=== PATIENT | female | born 1950 | race Caucasian/White ===

== ENCOUNTER 2019-12-14 06:09 | Inpatient (IN) | payer MEDICARE, OTHER ==
[~2019-12-14 06:09] MED LIST: Acetaminophen 325 MG Tab PO SCH; Lactated Ringers 1,000 ML IV SCH; Lidocaine 1%/Sod Bicarbonate in NS 8.4% 1 ML Syringe IDERM PRN; Pregabalin 25 MG Cap PO SCH; Sodium Chloride 0.9% 10 ML Syringe FLUSH PRN; oxyCODONE ER 10 MG TAB.ER PO SCH
[2019-12-14] MEDS ORDERED: ceFAZolin 1 GM Vial ONE ×2 (06:15→06:58)
[2019-12-14] MEDS ORDERED: Vancomycin 1 GM SDV ONE (06:15)
[2019-12-14] MEDS ORDERED: Iodine/Sodium Iodide 2% Tincture 30 ML Bottle ONE (06:15)
[2019-12-14] MEDS ORDERED: Bupivacaine 0.25% 10 ML SDV ONE (06:15)
[2019-12-14] MEDS ORDERED: Morphine 8 MG, EPINEPHrine 0.3 MG, Cefuroxime 750 MG, Ketorolac 30 MG, Sodium Chloride ... PRN ×5 (06:38)
[2019-12-14] MEDS ORDERED: Bisacodyl 5 MG Tab PO PRN (06:40)
[2019-12-14] MEDS ORDERED: Magnesium Hydroxide 400 MG/5 ML Susp 30 ML Cup PO PRN (06:40)
[2019-12-14] MEDS ORDERED: Sennosides 8.6 MG Tab PO PRN (06:40)
[2019-12-14] MEDS ORDERED: Naloxone 0.4 MG/ML SDV IVPUSH PRN (06:40)
--- NOTE | 2019-12-14 06:43 | PCM.PREANE ---
Preanesthetic Assessment - Anesthesia/Transfusion/Family Hx Anesthesia History: Prior Anesthesia Without Reaction Transfusion History: Prior Transfusion Without Reaction Type of Transfusion Reactions: Reports: Unknown - Review of Systems General: No Symptoms Pulmonary: No Symptoms Cardiovascular: No Symptoms Gastrointestinal: No Symptoms Neurological: No Symptoms Other: Reports: None - Physical Assessment NPO Status Date: 12/13/19 NPO Status Time: 19:00 ASA Class: 2 Mental Status: Alert & Oriented x3 Airway Class: Mallampati = 2 Dentition: Reports: Normal Dentition, [place](s), Bridge Thyro-Mental Finger Breadths: 3 Mouth Opening Finger Breadths: 4 ROM/Head Extension: Full Lungs: Clear to Auscultation, Normal Respiratory Effort - Lab Values: Laboratory Last Values MRSA (PCR) Negative 12/01/19 16:56 - Allergies Allergies/Adverse Reactions: Allergies Allergy/AdvReac Type Severity Reaction Status Date / Time No Known Allergies Allergy Verified 12/13/19 11:24 - Blood Blood Available: Yes Product(s) Available: PRBC - Acknowledgements Anesthesia Type Planned: General Anesthesia, Spinal Pt an Appropriate Candidate for the Planned Anesthesia: Yes Alternatives and Risks of Anesthesia Discussed w Pt/Guardian: Yes Pt/Guardian Understands and Agrees with Anesthesia Plan: Yes PreAnesthesia Questionnaire HEENT History: Reports: Impaired Vision Cardiovascular History: Reports: None Respiratory History: Reports: Sleep Apnea, Other (See Below) Other Respiratory History: cough, undiagnosed sleep apnea symptoms Gastrointestinal History: Reports: Colon Polyp, Other (See Below) Other Gastrointestinal History: R inguinal hernia, tubular adenoma Genitourinary History: Reports: Renal Calculus SALON ASSISTANT History: Reports: Other OB/BYN History: , uterine prolapse, cystocele, atrophic vagintis Musculoskeletal History: Reports: Osteoarthritis, Osteoporosis Other Musculoskeletal History: left leg fracture, L elbow fracture Neurological History: Reports: Migraines, Vertigo Other Neuro History: dizziness Psychiatric History: Reports: Anxiety, Depression Endocrine/Metabolic History: Reports: Other (See Below) Other Endocrine/Metabolic History: thyroid nodule Hematologic History: Reports: None Immunologic History: Reports: None Oncologic (Cancer) History: Reports: None Dermatologic History: Reports: Other (See Below) Other Dermatologic History: lump in neck, skin lesions, seborrheic keratosis, skin lesion excsion - Infectious Disease History Infectious Disease History: Reports: None - Past Surgical History Head Surgeries/Procedures: Reports: None HEENT Surgical History: Reports: None Cardiovascular Surgical History: Reports: None Respiratory Surgical History: Reports: None GI Surgical History: Reports: Colonoscopy Female Surgical History: Reports: Breast Biopsy, Section, Tubal Ligation Neurological Surgical History: Reports: None Musculoskeletal Surgical History: Reports: Hip Replacement Other Musculoskeletal Surgeries/Procedures:: left leg fracture with repair, left hip replacement, left elbow ORIF Oncologic Surgical History: Reports: None - SUBSTANCE USE Smoking Status *Q: Former Smoker Days Per Week of Alcohol Use: 3 Number of Drinks Per Day: 3 Total Drinks Per Week: 9 Recreational Drug Use History: No - HOME MEDS Home Medications: Home Meds Ascorbic Acid [Vitamin C] 1,000 mg PO DAILY 09/28/16 [History] Calcium Carb/Vitamin D3/Vit K1 [Calcium + D Soft Chewable Tab] 2 tab PO DAILY [History] Multivitamin [Multivitamins] 1 tab PO DAILY 09/28/16 [History] Potassium Gluconate 500 mg PO DAILY 09/28/16 [History] Vitamin B Complex 1 tab PO DAILY 09/28/16 [History] Vitamin E 400 unit PO DAILY 09/28/16 [History] Cholecalciferol (Vitamin D3) [Vitamin D3] 5,000 unit PO DAILY 12/13/19 [History] Lactobacillus Combination No.4 [Probiotic] 1 cap PO DAILY 12/13/19 [History] Turmeric 400 mg PO DAILY 12/13/19 [History] Ubidecarenone [Coq-10] 100 mg PO DAILY 12/13/19 [History] Vitamin A 10,000 units PO DAILY 12/13/19 [History] - CURRENT (IN HOUSE) MEDS Current Meds: Current Medications Acetaminophen (Tylenol) 975 mg PO ONETIME LORI Stop: 12/14/19 12:00 Last Admin: 12/14/19 06:23 Dose: 975 mg Lactated Ringer's (Ringers, Lactated) 1,000 mls @ 125 mls/hr IV ASDIRECTED LORI Lidocaine/Sodium Bicarbonate (Buffered Lidocaine 1% In Ns 8.4%) 0.25 ml IDERM ONETIME PRN PRN Reason: Prior to IV Start Oxycodone HCl (Oxycontin) 10 mg PO ONETIME LORI Stop: 12/14/19 12:00 Last Admin: 12/14/19 06:23 Dose: 10 mg Pregabalin (Lyrica) 50 mg PO ONETIME LORI Stop: 12/14/19 12:00 Last Admin: 12/14/19 06:23 Dose: 50 mg Sodium Chloride (Saline Flush) 10 ml FLUSH ASDIRECTED PRN PRN Reason: Keep Vein Open Discontinued Medications Bupivacaine HCl (Sensorcaine-Mpf 0.25%) Confirm Administered Dose 30 ml .ROUTE .STK-MED ONE Stop: 12/14/19 06:16 Cefazolin Sodium (Ancef) Confirm Administered Dose 2 gm .ROUTE .STK-MED ONE Stop: 12/14/19 06:16 Iodine (Iodine 2% Mild Tincture) Confirm Administered Dose 30 ml .ROUTE .STK- MED ONE Stop: 12/14/19 06:16 Tranexamic Acid (Cyklokapron) Confirm Administered Dose 1,000 mg .ROUTE .STK- MED ONE Stop: 12/14/19 06:16 Vancomycin HCl (Vancomycin) Confirm Administered Dose 1 gm .ROUTE .STK-MED ONE Stop: 12/14/19 06:16
[2019-12-14] MEDS ORDERED: ceFAZolin 2 GM in Premix Bag 1 BAG IV SCH (06:45)
[2019-12-14] MEDS ORDERED: Propofol 200 MG/20 ML SDV ONE (06:50)
[2019-12-14] MEDS ORDERED: Lidocaine 1% 4 ML ONE (06:50)
[2019-12-14] MEDS ORDERED: Lactated Ringers 1,000 ML ONE ×2 (06:58→08:42)
[2019-12-14] MEDS ORDERED: fentaNYL 100 MCG/2 ML SDV ONE (06:58)
[2019-12-14] MEDS ORDERED: Midazolam 1 MG/ML 2 ML SDV ONE (06:58)
[2019-12-14] MEDS ORDERED: Famotidine 20 MG Tab PO SCH (07:00)
[2019-12-14] MEDS ORDERED: Ondansetron 4 MG/2 ML SDV ONE (07:35)
[2019-12-14] MEDS ORDERED: ePHEDrine/Normal Saline 25 MG/5 ML Syringe ONE (07:41)
[2019-12-14] MEDS ORDERED: Phenylephrine/Normal Saline 100 MCG/ML 10 ML Syringe ONE (07:46)
[2019-12-14] MEDS ORDERED: Ondansetron 4 MG/2 ML SDV IVPUSH PRN (08:04)
[2019-12-14] MEDS ORDERED: ePHEDrine 50 MG/ML SDV IVPUSH PRN (08:04)
[2019-12-14] MEDS ORDERED: fentaNYL 100 MCG/2 ML SDV IVPUSH PRN (08:04)
[2019-12-14] MEDS ORDERED: diphenhydrAMINE 50 MG/ML SDV IVPUSH PRN (08:04)
[2019-12-14] MEDS ORDERED: HYDROmorphone 0.5 MG/0.5 ML Syringe IVPUSH PRN (08:04)
--- NOTE | 2019-12-14 09:16 | PCM.POSTAN ---
POST ANESTHESIA ASSESSMENT - MENTAL STATUS Mental Status: Alert, Oriented - VITAL SIGNS Vital Signs: Last Vital Signs Temp 36.3 C 12/14/19 06:15 Pulse 68 12/14/19 06:15 Resp 16 12/14/19 06:15 BP 124/64 12/14/19 06:15 Pulse Ox 96 12/14/19 06:15 - RESPIRATORY Respiratory Status: Respiratory Rate WNL, Airway Patent - CARDIOVASCULAR CV Status: Pulse Rate WNL, Blood Pressure Stable - GASTROINTESTINAL GI Status: No Symptoms - PAIN Pain Score: 0 - POST OP HYDRATION Hydration Status: Adequate & Stable
[2019-12-14] MEDS: oxyCODONE 5 MG Tab PO PRN ×3 (09:41→21:28)
--- NOTE | 2019-12-14 09:46 | PCM.CONS ---
H&P History of Present Illness - General Date of Service: 12/14/19 Admit Problem/Dx: Admission Diagnosis/Problem Admission Diagnosis/Problem Hip pain Source of Information: Patient, Old Records, Provider, RN, RN Notes Reviewed History Limitations: Reports: No Limitations - History of Present Illness Initial Comments - Free Text/Narative: Dilcia Rico is a 69 yo female patient of Dr. Spain who is post-operative day 0 of left hip acetabular revision with femoral head revision. Hospital medicine was consulted for post-operative medical care of the following listed medical conditions. At this time she is resting comfortably in bed. Pain is controlled. She denies any chest pain, shortness of breath, palpitations, nausea, or vomiting. Nursing notes the patient has a high HR and irregular rhythm. 12-lead EKG shows A-fib with RVR, rate of 170. She carries a history of: Impaired vision , cough, undiagnosed sleep apnea, right inguinal hernia, tubular adenoma, renal calculus, , uterine prolapse, cystocele, osteoarthritis, osteoporosis, migraines, vertigo, anxiety, depression, thyroid nodule, seborrheic keratosis, dizziness, lymphadenopathy, elevated LFTs, hypercalcemia, abnormal chest x-ray with hyperinflation and questionable subtle evolving infiltrate. She is a former smoker. She is a full code. Her primary care provider is Dr. Harris. Left Hip Pain Score (Numeric/FACES): 0 - Related Data Allergies/Adverse Reactions: Allergies Allergy/AdvReac Type Severity Reaction Status Date / Time No Known Allergies Allergy Verified 12/13/19 11:24 Home Medications: Home Meds Ascorbic Acid [Vitamin C] 1,000 mg PO DAILY 09/28/16 [History] Calcium Carb/Vitamin D3/Vit K1 [Calcium + D Soft Chewable Tab] 2 tab PO DAILY [History] Multivitamin [Multivitamins] 1 tab PO DAILY 09/28/16 [History] Potassium Gluconate 500 mg PO DAILY 09/28/16 [History] Vitamin B Complex 1 tab PO DAILY 09/28/16 [History] Vitamin E 400 unit PO DAILY 09/28/16 [History] Cholecalciferol (Vitamin D3) [Vitamin D3] 5,000 unit PO DAILY 12/13/19 [History] Lactobacillus Combination No.4 [Probiotic] 1 cap PO DAILY 12/13/19 [History] Turmeric 400 mg PO DAILY 12/13/19 [History] Ubidecarenone [Coq-10] 100 mg PO DAILY 12/13/19 [History] Vitamin A 10,000 units PO DAILY 12/13/19 [History] Past Medical History HEENT History: Reports: Impaired Vision Cardiovascular History: Reports: None Respiratory History: Reports: Sleep Apnea, Other (See Below) Other Respiratory History: cough, undiagnosed sleep apnea symptoms Gastrointestinal History: Reports: Colon Polyp, Other (See Below) Other Gastrointestinal History: R inguinal hernia, tubular adenoma Genitourinary History: Reports: Renal Calculus SAND DRIER History: Reports: Other OB/BYN History: , uterine prolapse, cystocele, atrophic vagintis Musculoskeletal History: Reports: Osteoarthritis, Osteoporosis Other Musculoskeletal History: left leg fracture, L elbow fracture Neurological History: Reports: Migraines, Vertigo Other Neuro History: dizziness Psychiatric History: Reports: Anxiety, Depression Endocrine/Metabolic History: Reports: Other (See Below) Other Endocrine/Metabolic History: thyroid nodule Hematologic History: Reports: None Immunologic History: Reports: None Oncologic (Cancer) History: Reports: None Dermatologic History: Reports: Other (See Below) Other Dermatologic History: lump in neck, skin lesions, seborrheic keratosis, skin lesion excsion - Infectious Disease History Infectious Disease History: Reports: None - Past Surgical History Head Surgeries/Procedures: Reports: None HEENT Surgical History: Reports: None Cardiovascular Surgical History: Reports: None Respiratory Surgical History: Reports: None GI Surgical History: Reports: Colonoscopy Female Surgical History: Reports: Breast Biopsy, Section, Tubal Ligation Neurological Surgical History: Reports: None Musculoskeletal Surgical History: Reports: Hip Replacement Other Musculoskeletal Surgeries/Procedures:: left leg fracture with repair, left hip replacement, left elbow ORIF Oncologic Surgical History: Reports: None Social & Family History - Tobacco Use Smoking Status *Q: Former Smoker Used Tobacco, but Quit: Yes Month/Year Tobacco Last Used: 2015 - Caffeine Use Caffeine Use: Reports: Coffee - Alcohol Use Days Per Week of Alcohol Use: 3 Number of Drinks Per Day: 3 Total Drinks Per Week: 9 - Recreational Drug Use Recreational Drug Use: No H&P Review of Systems - Review of Systems: Review Of Systems: See Below General: Reports: No Symptoms. Denies: Fever, Chills HEENT: Reports: No Symptoms. Denies: Headaches, Sore Throat Pulmonary: Reports: No Symptoms. Denies: Shortness of Breath, Wheezing, Cough, Sputum Cardiovascular: Reports: No Symptoms. Denies: Chest Pain, Palpitations, Dyspnea on Exertion, Lightheadedness (was earlier but not currently ) Gastrointestinal: Reports: No Symptoms. Denies: Abdominal Pain, Constipation, Diarrhea, Nausea, Vomiting Genitourinary: Reports: No Symptoms. Denies: Pain Musculoskeletal: Reports: Leg Pain Skin: Reports: No Symptoms. Denies: Cyanosis Psychiatric: Reports: No Symptoms. Denies: Confusion Neurological: Reports: Difficulty Walking, Gait Disturbance. Denies: Pre- Existing Deficit, Weakness Hematologic/Lymphatic: Reports: No Symptoms Immunologic: Reports: No Symptoms Exam - Exam Exam: See Below - Vital Signs Vital Signs: Last Vital Signs Temp 97.0 F 12/14/19 09:07 Pulse 68 12/14/19 06:15 Resp 12 12/14/19 09:45 BP 96/58 L 12/14/19 09:45 Pulse Ox 95 12/14/19 09:45 Weight: 129 lb 12.8 oz - Exam Quality Assessment: Supplemental Oxygen, DVT Prophylaxis General: Alert, Oriented, Cooperative. No: Mild Distress HEENT: Conjunctiva Clear, EACs Clear, Hearing Intact, Mucosa Moist & [place], Nares Patent, Posterior Pharynx Clear, PERRLA Neck: Supple, Trachea Midline Lungs: Clear to Auscultation, Normal Respiratory Effort Cardiovascular: Irregular Rhythm (A-fib with RVR), Tachycardia (170) GI/Abdominal Exam: Normal Bowel Sounds, Soft, Non-Tender, No Distention (Female) Exam: Deferred Rectal (Female) Exam: Deferred Back Exam: Normal Inspection, Full Range of Motion Extremities: No Pedal Edema, Normal Capillary Refill, Leg Pain, Limited Range of Motion, Other (Bandage in place on left leg. Bandage is dry and intact. Cooling pack in place. ) Peripheral Pulses: 2+: Radial (L), Radial (R), Dorsalis Pedis (L), Dorsalis Pedis (R) Skin: Warm, Dry, Intact Neurological: Cranial Nerves Intact (Grossly ) Neuro Extensive - Mental Status: Alert, Oriented x3, Normal Mood/Affect - Patient Data Lab Results Last 24 hrs: Laboratory Results - last 24 hr 12/14/19 Range/Units 06:40 Blood Type B POSITIVE Gel Antibody Screen Negative Sepsis Event Note - Evaluation Sepsis Screening Result: No Definite Risk - Focused Exam Vital Signs: Vital Signs Temp Pulse Resp BP Pulse Ox Pulse Ox 12/14/19 09:45 12 96/58 L 95 12/14/19 09:38 100 12/14/19 09:35 100 12/14/19 09:30 10 L 101/53 L 100 12/14/19 09:20 10 L 96/53 L 100 12/14/19 09:07 97.0 F 11 L 91/50 L 98 98 12/14/19 06:15 97.4 F 68 16 124/64 96 Date Exam was Performed: 12/14/19 Time Exam was Performed: 12:59 Consult PN Assessment/Plan POD#: 0 Procedures: Procedures ASSAY OF CHROMIUM (06/10/19) BLOOD TYPING SEROLOGIC ABO (09/30/16) BLOOD TYPING SEROLOGIC RH(D) (09/30/16) BONE IMAGING 3 PHASE (05/06/17) CMBN ANT PST COLPRHY (10/01/16) COMP SCREEN MAMMOGRAM ADD-ON (07/20/14) COMPLETE CBC W/AUTO DIFF WBC (09/30/16) COMPREHEN METABOLIC PANEL (09/30/16) EXC H-F-NK-SP B9+BEATRIZ 1.1-2 (10/01/16) HEAVY METAL QUANT EACH ARMANDO (03/20/17) HYDRATE IV INFUSION ADD-ON (10/01/16) INSERT TEMP BLADDER CATH (10/01/16) LAP ING HERNIA REPAIR INIT (10/01/16) RBC ANTIBODY SCREEN (09/30/16) REPAIR BLADDER DEFECT (10/01/16) ROUTINE VENIPUNCTURE (03/20/17) SMEAR WET [place] SALINE/INK (10/23/16) THER/PROPH/DIAG INJ IV PUSH (10/01/16) TISSUE EXAM BY PATHOLOGIST (10/01/16) TISSUE EXAM BY PATHOLOGIST (10/01/16) TRICHOMONAS ASSAY W/OPTIC (10/23/16) TX/PRO/DX INJ SAME DRUG CROSS CUT SAWYER (10/01/16) URINALYSIS AUTO W/O SCOPE (09/30/16) VAG HYST INCLUDING T/O (10/01/16) (1) Status post hip surgery SNOMED Code(s): 243088607, 994831748 Code(s): Z98.890 - OTHER SPECIFIED POSTPROCEDURAL STATES Priority: High Current Visit: Yes (2) Osteoarthritis SNOMED Code(s): 030343349 Code(s): M19.90 - UNSPECIFIED OSTEOARTHRITIS, UNSPECIFIED SITE Priority: High Current Visit: Yes Qualifiers: Osteoarthritis location: hip Osteoarthritis type: primary Laterality: right Qualified Code(s): M16.11 - Unilateral primary osteoarthritis, right hip (3) Impaired vision SNOMED Code(s): 546507226 Code(s): H54.7 - UNSPECIFIED VISUAL LOSS Priority: Low Current Visit: No (4) Cough SNOMED Code(s): 91347814 Code(s): R05 - COUGH Priority: Low Current Visit: No (5) Suspected sleep apnea SNOMED Code(s): 85925333 Code(s): R29.818 - OTHER SYMPTOMS AND SIGNS INVOLVING THE NERVOUS SYSTEM Priority: Medium Current Visit: No (6) Uterine prolapse SNOMED Code(s): 52410446 Code(s): N81.4 - UTEROVAGINAL PROLAPSE, UNSPECIFIED Priority: Low Current Visit: No (7) Cystocele SNOMED Code(s): 530468378 Code(s): TNU1946 - Priority: Low Current Visit: No (8) Osteoporosis SNOMED Code(s): 74449095 Code(s): M81.0 - AGE-RELATED OSTEOPOROSIS W/O CURRENT PATHOLOGICAL FRACTURE Priority: Medium Current Visit: Yes Qualifiers: Osteoporosis type: unspecified Presence of current pathological fracture: unspecified Qualified Code(s): M81.0 - Age-related osteoporosis without current pathological fracture (9) Migraines SNOMED Code(s): 11031462 Code(s): G43.909 - MIGRAINE, UNSP, NOT INTRACTABLE, WITHOUT STATUS MIGRAINOSUS Priority: Low Current Visit: No Qualifiers: Migraine type: unspecified Status migrainosus presence: without status migrainosus Intractability: not intractable Qualified Code(s): G43.909 - Migraine, unspecified, not intractable, without status migrainosus (10) Vertigo SNOMED Code(s): 365724251 Code(s): R42 - DIZZINESS AND GIDDINESS Priority: Low Current Visit: No (11) Anxiety SNOMED Code(s): 16750728 Code(s): F41.9 - ANXIETY DISORDER, UNSPECIFIED Priority: Low Current Visit: No (12) Depression SNOMED Code(s): 26169008 Code(s): F32.9 - MAJOR DEPRESSIVE DISORDER, SINGLE EPISODE, UNSPECIFIED Priority: Low Current Visit: No Qualifiers: Depression Type: other depression Qualified Code(s): F32.89 - Other specified depressive episodes (13) Dizziness SNOMED Code(s): 992280357, 027084125 Code(s): R42 - DIZZINESS AND GIDDINESS Priority: Low Current Visit: No (14) Thyroid nodule SNOMED Code(s): 422029011 Code(s): E04.1 - NONTOXIC SINGLE THYROID NODULE Priority: Low Current Visit: No (15) Seborrheic keratoses SNOMED Code(s): 436681519 Code(s): L82.1 - OTHER SEBORRHEIC KERATOSIS Priority: Low Current Visit: No (16) History of tobacco use SNOMED Code(s): 051303592 Code(s): Z87.891 - PERSONAL HISTORY OF NICOTINE DEPENDENCE Priority: Medium Current Visit: No (17) Abnormal chest x-ray SNOMED Code(s): 057982906, 346345200 Code(s): R93.89 - ABNORMAL FINDINGS ON DX IMAGING OF OTH BODY STRUCTURES Priority: Medium Current Visit: No (18) Elevated LFTs SNOMED Code(s): 506684902, 028971509 Code(s): R94.5 - ABNORMAL RESULTS OF LIVER FUNCTION STUDIES Priority: Medium Current Visit: No (19) Hypercalcemia SNOMED Code(s): 32138668 Code(s): E83.52 - HYPERCALCEMIA Priority: Medium Current Visit: No (20) Lymphadenopathy SNOMED Code(s): 37540277 Code(s): R59.1 - GENERALIZED ENLARGED LYMPH NODES Priority: Medium Current Visit: No (21) Right inguinal hernia SNOMED Code(s): 856440050 Code(s): K40.90 - UNIL INGUINAL HERNIA, W/O OBST OR GANGR, NOT SPCF RECUR Priority: Medium Current Visit: No (22) New onset atrial fibrillation SNOMED Code(s): 97145129 Code(s): I48.91 - UNSPECIFIED ATRIAL FIBRILLATION Priority: High Current Visit: Yes (23) Atrial fibrillation with rapid ventricular response SNOMED Code(s): 247323809974300 Code(s): I48.91 - UNSPECIFIED ATRIAL FIBRILLATION Priority: High Current Visit: Yes Problem List Initiated/Reviewed/Updated: Yes Plan: I/P: Acute: 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 - post-operative day 0 -DVT prophylaxis and pain management per primary care team -PT/OT -IS/RT -Monitor oxygen saturation -Titrate oxygen as needed -Home medications reviewed -Vital signs stable -Monitor labs -Pre-operative Hgb was 13.1 -Pre-operative GFR was 69 -Pre-operative AST was 38 -Pre-operative calcium was 10.9 -Pre-operative EKG showed a sinus rhythm with LAD Osteoarthritis of left hip -Pain management per primary care team A-fib with RVR -New onset -Noted post-surgically -12-lead shows A-fib RVR with rate of 170 -Denies symptoms -Cardizem IVP as ordered. -Cardizem drip -Telemetry -Upgraded to ICU status -[id number]-GHEf score of 1 (0.6% stroke risk per year.) -Echo tomorrow AM once rate is controlled. -Check labs Chronic: Impaired vision cough suspected undiagnosed sleep apnea right inguinal hernia tubular adenoma renal calculus uterine prolapse cystocele osteoarthritis osteoporosis migraines vertigo anxiety depression thyroid nodule seborrheic keratosis dizziness lymphadenopathy elevated LFTs hypercalcemia abnormal chest x-ray with hyperinflation and questionable subtle evolving infiltrate Plan: Upgrade to ICU status CM for discharge planning GI prophylaxis Home medications as indicated Other orders as listed above Routine AM labs She is a full code. Her PCP is Dr. Harris Thank you for allowing us to participate in the care of this patient!! Requesting Provider: Dr. Spain Date Consult Requested: 12/14/19 Patient History Reviewed: Yes Admission H&P Reviewed: Yes Notified Requestor: Yes
--- NOTE | 2019-12-14 09:52 | CR ---
Pelvis and left hip: AP view of the pelvis was obtained as well as crosstable lateral view of the left hip. Comparison: Previous pelvis and left hip study of 03/26/12. Left hip prosthesis is seen. Components are aligned. Joint space within the right hip is preserved. No acute fracture or other bony abnormality is seen. Osteopenia is present. Impression: 1. Left hip prosthesis. 2. Osteopenia. No acute bony abnormality is identified. Diagnostic code #2 This report was dictated in [place] Standard Time
[2019-12-14] MEDS: Ketorolac 15 MG/ML SDV IVPUSH PRN ×2 (10:39→16:52)
[2019-12-14] MEDS ORDERED: Diltiazem 125 MG in Sodium Chloride 0.9% 100 ML IV SCH ×2 (12:00→13:15)
[2019-12-14] MEDS: Diltiazem 50 MG/10 ML SDV IVPUSH STA (12:17)
[2019-12-14] MEDS ORDERED: Diltiazem 50 MG/10 ML SDV IVPUSH STA (12:21)
[2019-12-14] MEDS ORDERED: Lactated Ringers 1,000 ML IV ONE (13:05)
[2019-12-14] MEDS ORDERED: Diltiazem 50 MG/10 ML SDV IVPUSH ONE (13:08)
[2019-12-14] MEDS: Lactated Ringers 500 ML IV ONE ×2 (13:29→16:12)
[2019-12-14] MEDS: Morphine 2 MG/ML Syringe IVPUSH PRN ×3 (13:37→18:09)
[2019-12-14] MEDS: ceFAZolin 2 GM in Premix Bag 1 BAG IV SCH ×2 (14:08→22:04)
[2019-12-14 15:30] VITALS: PULSE 69
--- NOTE | 2019-12-14 16:51 | CR ---
Chest: Portable view of the chest was obtained. Comparison: No prior chest imaging is available. Heart size and mediastinum are normal. Right jugular line is seen. Tip lies within the superior vena cava close to the right atrial junction. No pneumothorax is seen. Heart size and mediastinum are normal. Lungs are clear. Bony structures are grossly intact. Impression: 1. Right-sided jugular line with tip lying at the right atrial and superior vena cava junction. 2. No pneumothorax. Diagnostic code #3 This report was dictated in [place] Standard Time
[2019-12-14] MEDS: Lactated Ringers 1,000 ML IV SCH (16:58)
[2019-12-14] MEDS ORDERED: Magnesium Sulfate/Water 2 GM in Premix Bag 1 BAG IV SCH (17:30)
[2019-12-14] MEDS ORDERED: Magnesium Sulfate/Water 4 GM in Premix Bag 1 BAG IV ONE (18:30)
[2019-12-14] MEDS: Famotidine 20 MG Tab PO SCH (19:59)
[2019-12-14] MEDS: Enoxaparin 60 MG/0.6 ML Syringe SUBCUT SCH (20:00)
[2019-12-14] MEDS: Docusate Sodium 100 MG Cap PO SCH (20:00)
[2019-12-14] MEDS ORDERED: Aspirin 325 MG Tab.EC PO SCH (21:00)
[2019-12-14] MEDS: Ondansetron 4 MG/2 ML SDV IVPUSH PRN (21:59)
--- NOTE | 2019-12-14 22:27 | PCM.PRNOTE ---
- Free Text/Narrative Note: Central Line Placement Date: 12/14/2019 Indication: Intravenous access Attending: Yuliet Ma MD A time-out was completed verifying correct patient, procedure, site, positioning , and special equipment if applicable. The patient was placed in a dependent position appropriate for central line placement based on the vein to be cannulated. The patients right neck was prepped and draped in sterile fashion. 1% Lidocaine was used to anesthetize the surrounding skin area. A triple lumen 7-[place] Cordis catheter was introduced into the the internal jugular/ using the Seldinger technique and under ultrasound guidance. The catheter was threaded smoothly over the guide wire and appropriate blood return was obtained. Each lumen of the catheter was evacuated of air and flushed with sterile saline. The catheter was then sutured in place to the skin and a sterile dressing applied. Perfusion to the extremity distal to the point of catheter insertion was checked and found to be adequate. Estimated Blood Loss: 3mL The patient tolerated the procedure well and there were no complications.
[2019-12-15] MEDS: Ketorolac 15 MG/ML SDV IVPUSH PRN (02:18)
[2019-12-15] MEDS: Lactated Ringers 1,000 ML IV SCH ×3 (03:03→22:52)
[2019-12-15] MEDS: ceFAZolin 2 GM in Premix Bag 1 BAG IV SCH (06:04)
--- NOTE | 2019-12-15 07:27 | PCM.PN ---
- General Info Date of Service: 12/15/19 Admission Dx/Problem (Free Text): Admission Diagnosis/Problem Admission Diagnosis/Problem Hip pain Functional Status: Reports: Pain Controlled, Tolerating Diet, Urinating, Incentive Spirometry. Denies: Ambulating, New Symptoms - Review of Systems General: Reports: No Symptoms, Weakness, Fatigue. Denies: Fever, Malaise, Chills HEENT: Reports: No Symptoms. Denies: Headaches, Sore Throat Pulmonary: Reports: No Symptoms. Denies: Shortness of Breath, Cough, Sputum, Wheezing Cardiovascular: Reports: No Symptoms. Denies: Chest Pain, Edema Gastrointestinal: Reports: No Symptoms. Denies: Abdominal Pain, Constipation, Diarrhea, Nausea, Vomiting Genitourinary: Reports: No Symptoms. Denies: Pain Musculoskeletal: Reports: No Symptoms Skin: Reports: No Symptoms. Denies: Cyanosis Neurological: Reports: No Symptoms. Denies: Confusion - Patient Data Vitals - Most Recent: Last Vital Signs Temp 97.9 F 12/15/19 04:00 Pulse 69 12/14/19 15:00 Resp 18 12/15/19 04:00 BP 96/58 L 12/15/19 04:00 Pulse Ox 99 12/15/19 04:00 Weight - Most Recent: 141 lb 9.6 oz I&O - Last 24 Hours: Intake & Output 12/14/19 12/15/19 12/15/19 22:59 06:59 14:59 Intake Total 2190 1353 Output Total 1100 1000 Balance 1090 353 Lab Results Last 24 Hours: Laboratory Results - last 24 hr 12/14/19 12/14/19 12/15/19 Range/Units 06:40 16:32 04:27 WBC 5.05 (3.98-10.04) K/mm3 RBC 3.11 L (3.98-5.22) M/mm3 Hgb 9.7 L D (11.2-15.7) gm/dl Hct 30.4 L (34.1-44.9) % MCV 97.7 H (79.4-94.8) fl MCH 31.2 (25.6-32.2) pg MCHC 31.9 L (32.2-35.5) g/dl RDW Std Deviation 45.2 (36.4-46.3) fL Plt Count 305 D (182-369) K/mm3 MPV 8.1 L (9.4-12.3) fl Sodium 135 L (136-145) mEq/L Potassium 4.1 (3.5-5.1) mEq/L Chloride 103 (98-107) mEq/L Carbon Dioxide 28 (21-32) mEq/L Anion Gap 8.1 (5-15) BUN 13 (7-18) mg/dL Creatinine 0.7 (0.55-1.02) mg/dL Est Cr Clr Drug Dosing 60.84 mL/min Estimated GFR (MDRD) > 60 (>60) mL/min BUN/Creatinine Ratio 18.6 H (14-18) Glucose 114 (80-115) mg/dL Calcium 8.2 L (8.5-10.1) mg/dL Phosphorus 3.4 (2.6-4.7) mg/dL Magnesium 1.4 L (1.8-2.4) mg/dl Total Bilirubin 0.3 (0.2-1.0) mg/dL AST 24 (15-37) U/L ALT 26 (14-59) U/L Alkaline Phosphatase 72 (46-116) U/L Total Protein 5.2 L (6.4-8.2) g/dl Albumin 2.7 L (3.4-5.0) g/dl Globulin 2.5 gm/dL Albumin/Globulin Ratio 1.1 (1-2) Blood Type B POSITIVE Gel Antibody Screen Negative 12/15/19 Range/Units 04:27 WBC (3.98-10.04) K/mm3 RBC (3.98-5.22) M/mm3 Hgb (11.2-15.7) gm/dl Hct (34.1-44.9) % MCV (79.4-94.8) fl MCH (25.6-32.2) pg MCHC (32.2-35.5) g/dl RDW Std Deviation (36.4-46.3) fL Plt Count (182-369) K/mm3 MPV (9.4-12.3) fl Sodium 132 L (136-145) mEq/L Potassium 4.2 (3.5-5.1) mEq/L Chloride 99 (98-107) mEq/L Carbon Dioxide 28 (21-32) mEq/L Anion Gap 9.2 (5-15) BUN 9 (7-18) mg/dL Creatinine 0.7 (0.55-1.02) mg/dL Est Cr Clr Drug Dosing 60.84 mL/min Estimated GFR (MDRD) > 60 (>60) mL/min BUN/Creatinine Ratio 12.9 L (14-18) Glucose 133 H (80-115) mg/dL Calcium 8.4 L (8.5-10.1) mg/dL Phosphorus (2.6-4.7) mg/dL Magnesium (1.8-2.4) mg/dl Total Bilirubin 0.3 (0.2-1.0) mg/dL AST 26 (15-37) U/L ALT 23 (14-59) U/L Alkaline Phosphatase 72 (46-116) U/L Total Protein 5.4 L (6.4-8.2) g/dl Albumin 2.8 L (3.4-5.0) g/dl Globulin 2.6 gm/dL Albumin/Globulin Ratio 1.1 (1-2) Blood Type Gel Antibody Screen Med Orders - Current: Current Medications Bisacodyl (Dulcolax) 5 mg PO DAILY PRN PRN Reason: Constipation Cholecalciferol (Vitamin D3) 5,000 unit PO DAILY [facility] Cyclobenzaprine HCl (Flexeril) 10 mg PO TID PRN PRN Reason: Spasms Docusate Sodium (Colace) 100 mg PO BID [facility] Last Admin: 12/14/19 20:00 Dose: 100 mg Enoxaparin Sodium (Lovenox) 60 mg SUBCUT BID [facility] Last Admin: 12/14/19 20:00 Dose: 60 mg Famotidine (Pepcid) 20 mg PO Q12H [facility] Last Admin: 12/14/19 19:59 Dose: 20 mg Cefazolin Sodium/Dextrose 2 gm (/ Premix) 50 mls @ 100 mls/hr IV Q8H [facility] Stop: 12/15/19 07:29 Last Admin: 12/15/19 06:04 Dose: 100 mls/hr Diltiazem HCl 125 mg/ Sodium (Chloride) 125 mls @ 5 mls/hr IV TITRATE [facility]; Protocol Lactated Ringer's (Ringers, Lactated) 1,000 mls @ 100 mls/hr IV ASDIRECTED [facility] Last Admin: 12/15/19 03:03 Dose: 100 mls/hr Magnesium Hydroxide (Milk Of Magnesia) 30 ml PO BID PRN PRN Reason: Constipation Morphine Sulfate (Morphine) 2 mg IVPUSH Q2H PRN PRN Reason: Breakthrough Pain Last Admin: 12/14/19 18:09 Dose: 2 mg Multivitamins (Thera) 1 each PO DAILY [facility] Naloxone HCl (Narcan) 0.1 mg IVPUSH Q5M PRN PRN Reason: Oversedation Ondansetron HCl (Zofran) 4 mg IVPUSH Q6H PRN PRN Reason: Nausea/Vomiting Last Admin: 12/14/19 21:59 Dose: 4 mg Oxycodone HCl (Oxycodone) 5 - 10 mg PO Q4H PRN PRN Reason: Pain Last Admin: 12/14/19 21:28 Dose: 10 mg Saccharomyces Boulardii (Florastor) 250 mg PO DAILY [facility] Senna (Senna) 8.6 mg PO BID PRN PRN Reason: Constipation Sodium Chloride (Saline Flush) 10 ml FLUSH ASDIRECTED PRN PRN Reason: Keep Vein Open Vitamin B Complex/Vitamin C (Super B With Vitamin C) 1 cap PO DAILY [facility] Discontinued Medications Acetaminophen (Tylenol) 975 mg PO ONETIME [facility] Stop: 12/14/19 12:00 Last Admin: 12/14/19 06:23 Dose: 975 mg Aspirin (Ecotrin) 325 mg PO BID [facility] Aspirin (Ecotrin) 325 mg PO BID [facility] Bupivacaine HCl (Sensorcaine-Mpf 0.25%) Confirm Administered Dose 30 ml .ROUTE .STK-MED ONE Stop: 12/14/19 06:16 Last Admin: 12/14/19 08:34 Dose: 30 ml Cefazolin Sodium (Ancef) Confirm Administered Dose 2 gm .ROUTE .STK-MED ONE Stop: 12/14/19 06:16 Last Admin: 12/14/19 08:31 Dose: 2 gm Cefazolin Sodium (Ancef) Confirm Administered Dose 2 gm .ROUTE .STK-MED ONE Stop: 12/14/19 06:59 Morphine Sulfate 8 mg/Epinephrine HCl 0.3 mg/Cefuroxime Sodium 750 mg/Ketorolac Tromethamine 30 mg/Sodium Chloride 27.9 ml 0 mg .XX ASDIRECTED PRN PRN Reason: Other Diltiazem HCl (Cardizem) 10 mg IVPUSH ONETIME [facility] Stop: 12/14/19 11:58 Last Admin: 12/14/19 12:17 Dose: 10 mg Diltiazem HCl (Cardizem) 15 mg IVPUSH ONETIME [facility] Stop: 12/14/19 12:22 Last Admin: 12/14/19 12:26 Dose: 15 mg Diltiazem HCl (Cardizem) 20 mg IVPUSH ONETIME ONE Stop: 12/14/19 13:09 Last Admin: 12/14/19 16:48 Dose: Not Given Diphenhydramine HCl (Benadryl) 25 mg IVPUSH Q6H PRN PRN Reason: itching Stop: 12/14/19 12:00 Ephedrine Sulfate (Ephedrine In Ns) Confirm Administered Dose 50 mg .ROUTE .STK- MED ONE Stop: 12/14/19 07:42 Ephedrine Sulfate (Ephedrine Sulfate) 5 mg IVPUSH ASDIRECTED PRN PRN Reason: Hypotension Stop: 12/14/19 12:00 Famotidine (Pepcid) 20 mg PO Q12H [facility] Last Admin: 12/14/19 13:40 Dose: Not Given Fentanyl (Sublimaze) Confirm Administered Dose 100 mcg .ROUTE .STK-MED ONE Stop: 12/14/19 06:59 Fentanyl (Sublimaze) 50 mcg IVPUSH Q5M PRN PRN Reason: pain Stop: 12/14/19 12:00 Hydromorphone HCl (Dilaudid) 0.5 mg IVPUSH Q15M PRN PRN Reason: Pain (severe 7-10) Stop: 12/14/19 12:00 Lactated Ringer's (Ringers, Lactated) 1,000 mls @ 125 mls/hr IV ASDIRECTED [facility] Last Admin: 12/14/19 06:41 Dose: 125 mls/hr Cefazolin Sodium/Dextrose 2 gm (/ Premix) 50 mls @ 100 mls/hr IV Q8H [facility] Stop: 12/14/19 23:14 Last Admin: 12/14/19 13:30 Dose: Not Given Lidocaine HCl (Xylocaine-Mpf 1%) Confirm Administered Dose 4 mls @ as directed .ROUTE .STK-MED ONE Stop: 12/14/19 06:51 Lactated Ringer's (Ringers, Lactated) Confirm Administered Dose 1,000 mls @ as directed .ROUTE .STK-MED ONE Stop: 12/14/19 06:59 Lactated Ringer's (Ringers, Lactated) Confirm Administered Dose 1,000 mls @ as directed .ROUTE .STK-MED ONE Stop: 12/14/19 08:43 Diltiazem HCl 125 mg/ Sodium (Chloride) 125 mls @ 5 mls/hr IV TITRATE [facility]; Protocol Lactated Ringer's (Ringers, Lactated) 1,000 mls @ 999 mls/min IV .BOLUS ONE Stop: 12/14/19 13:06 Last Admin: 12/14/19 13:30 Dose: Not Given Lactated Ringer's (Ringers, Lactated) 500 mls @ 999 mls/min IV .BOLUS ONE Stop: 12/14/19 13:08 Last Admin: 12/14/19 16:12 Dose: 999 mls/min Magnesium Sulfate 2 gm/ Premix 50 mls @ 25 mls/hr IV Q1H [facility] Stop: 12/14/19 18:29 Last Admin: 12/14/19 17:37 Dose: 25 mls/hr Magnesium Sulfate 4 gm/ Premix 100 mls @ 25 mls/hr IV ONETIME ONE Stop: 12/14/19 22:29 Last Admin: 12/14/19 19:37 Dose: 25 mls/hr Iodine (Iodine 2% Mild Tincture) Confirm Administered Dose 30 ml .ROUTE .STK- MED ONE Stop: 12/14/19 06:16 Last Admin: 12/14/19 08:33 Dose: 18 ml Ketorolac Tromethamine (Toradol) 15 mg IVPUSH Q6H PRN PRN Reason: Pain Last Admin: 12/15/19 02:18 Dose: 15 mg Lidocaine/Sodium Bicarbonate (Buffered Lidocaine 1% In Ns 8.4%) 0.25 ml IDERM ONETIME PRN PRN Reason: Prior to IV Start Last Admin: 12/14/19 06:41 Dose: 0.25 ml Midazolam HCl (Versed 1 Mg/Ml) Confirm Administered Dose 2 mg .ROUTE .STK-MED ONE Stop: 12/14/19 06:59 Non-Formulary Medication (Potassium Gluconate [Potassium Gluconate]) 500 mg PO DAILY [facility] Non-Formulary Medication (Ubidecarenone) 100 mg PO DAILY [facility] Non-Formulary Medication (Vitamin A) 10,000 units PO DAILY [facility] Ondansetron HCl (Zofran) Confirm Administered Dose 4 mg .ROUTE .STK-MED ONE Stop: 12/14/19 07:36 Ondansetron HCl (Zofran) 4 mg IVPUSH ONETIME PRN PRN Reason: Nausea/Vomiting Stop: 12/14/19 12:00 Oxycodone HCl (Oxycontin) 10 mg PO ONETIME [facility] Stop: 12/14/19 12:00 Last Admin: 12/14/19 06:23 Dose: 10 mg Phenylephrine HCl (Phenylephrine In Ns 100 Mcg/Ml) Confirm Administered Dose 1 mg .ROUTE .STK-MED ONE Stop: 12/14/19 07:47 Pregabalin (Lyrica) 50 mg PO ONETIME [facility] Stop: 12/14/19 12:00 Last Admin: 12/14/19 06:23 Dose: 50 mg Propofol (Diprivan 20 Ml) Confirm Administered Dose 600 mg .ROUTE .STK-MED ONE Stop: 12/14/19 06:51 Tranexamic Acid (Cyklokapron) Confirm Administered Dose 1,000 mg .ROUTE .STK- MED ONE Stop: 12/14/19 06:16 Last Admin: 12/14/19 08:38 Dose: 1,000 mg Vancomycin HCl (Vancomycin) Confirm Administered Dose 1 gm .ROUTE .STK-MED ONE Stop: 12/14/19 06:16 Last Admin: 12/14/19 08:38 Dose: 1 gm - Exam Quality Assessment: Central Line/PICC, DVT Prophylaxis. No: Supplemental Oxygen , Urine Catheter General: Alert, Oriented, Cooperative, No Acute Distress HEENT: Pupils Equal, Pupils Reactive, Mucous Membr. Moist/[place] Neck: Supple, Trachea Midline Lungs: Clear to Auscultation, Normal Respiratory Effort Cardiovascular: Regular Rate, Regular Rhythm GI/Abdominal Exam: Normal Bowel Sounds, Soft, Non-Tender, No Distention (Female) Exam: Deferred Extremities: Normal Capillary Refill, Leg Pain, Limited Range of Motion, Other ( Bandage in place on ) Sepsis Event Note - Evaluation Sepsis Screening Result: No Definite Risk - Focused Exam Vital Signs: Vital Signs Temp Resp BP Pulse Ox 12/15/19 04:00 97.9 F 18 96/58 L 99 12/15/19 00:00 97.1 F 18 99/54 L 100 12/14/19 19:45 98.9 F 18 85/52 L 100 Date Exam was Performed: 12/15/19 Time Exam was Performed: 14:14 - Problem List & Annotations (1) Status post hip surgery SNOMED Code(s): 299506950, 228580553 Code(s): Z98.890 - OTHER SPECIFIED POSTPROCEDURAL STATES Status: Acute Priority: High Current Visit: Yes (2) Osteoarthritis SNOMED Code(s): 867430555 Code(s): M19.90 - UNSPECIFIED OSTEOARTHRITIS, UNSPECIFIED SITE Status: Acute Priority: High Current Visit: Yes Qualifiers: Osteoarthritis location: hip Osteoarthritis type: primary Laterality: right Qualified Code(s): M16.11 - Unilateral primary osteoarthritis, right hip (3) Impaired vision SNOMED Code(s): 086452301 Code(s): H54.7 - UNSPECIFIED VISUAL LOSS Status: Acute Priority: Low Current Visit: No (4) Cough SNOMED Code(s): 02413463 Code(s): R05 - COUGH Status: Acute Priority: Low Current Visit: No (5) Suspected sleep apnea SNOMED Code(s): 39025446 Code(s): R29.818 - OTHER SYMPTOMS AND SIGNS INVOLVING THE NERVOUS SYSTEM Status: Acute Priority: Medium Current Visit: No (6) Uterine prolapse SNOMED Code(s): 90942369 Code(s): N81.4 - UTEROVAGINAL PROLAPSE, UNSPECIFIED Status: Acute Priority: Low Current Visit: No (7) Cystocele SNOMED Code(s): 385713989 Code(s): XQM5265 - Status: Acute Priority: Low Current Visit: No (8) Osteoporosis SNOMED Code(s): 12021460 Code(s): M81.0 - AGE-RELATED OSTEOPOROSIS W/O CURRENT PATHOLOGICAL FRACTURE Status: Acute Priority: Medium Current Visit: Yes Qualifiers: Osteoporosis type: unspecified Presence of current pathological fracture: unspecified Qualified Code(s): M81.0 - Age-related osteoporosis without current pathological fracture (9) Migraines SNOMED Code(s): 42306291 Code(s): G43.909 - MIGRAINE, UNSP, NOT INTRACTABLE, WITHOUT STATUS MIGRAINOSUS Status: Acute Priority: Low Current Visit: No Qualifiers: Migraine type: unspecified Status migrainosus presence: without status migrainosus Intractability: not intractable Qualified Code(s): G43.909 - Migraine, unspecified, not intractable, without status migrainosus (10) Vertigo SNOMED Code(s): 814790224 Code(s): R42 - DIZZINESS AND GIDDINESS Status: Acute Priority: Low Current Visit: No (11) Anxiety SNOMED Code(s): 37408367 Code(s): F41.9 - ANXIETY DISORDER, UNSPECIFIED Status: Acute Priority: Low Current Visit: No (12) Depression SNOMED Code(s): 58855742 Code(s): F32.9 - MAJOR DEPRESSIVE DISORDER, SINGLE EPISODE, UNSPECIFIED Status: Acute Priority: Low Current Visit: No Qualifiers: Depression Type: other depression Qualified Code(s): F32.89 - Other specified depressive episodes (13) Dizziness SNOMED Code(s): 709209169, 269139812 Code(s): R42 - DIZZINESS AND GIDDINESS Status: Acute Priority: Low Current Visit: No (14) Thyroid nodule SNOMED Code(s): 676601410 Code(s): E04.1 - NONTOXIC SINGLE THYROID NODULE Status: Acute Priority: Low Current Visit: No (15) Seborrheic keratoses SNOMED Code(s): 593139762 Code(s): L82.1 - OTHER SEBORRHEIC KERATOSIS Status: Acute Priority: Low Current Visit: No (16) History of tobacco use SNOMED Code(s): 560665230 Code(s): Z87.891 - PERSONAL HISTORY OF NICOTINE DEPENDENCE Status: Acute Priority: Medium Current Visit: No (17) Abnormal chest x-ray SNOMED Code(s): 645899264, 306899590 Code(s): R93.89 - ABNORMAL FINDINGS ON DX IMAGING OF OTH BODY STRUCTURES Status: Acute Priority: Medium Current Visit: No (18) Elevated LFTs SNOMED Code(s): 623809654, 949555623 Code(s): R94.5 - ABNORMAL RESULTS OF LIVER FUNCTION STUDIES Status: Acute Priority: Medium Current Visit: No (19) Hypercalcemia SNOMED Code(s): 93324299 Code(s): E83.52 - HYPERCALCEMIA Status: Acute Priority: Medium Current Visit: No (20) Lymphadenopathy SNOMED Code(s): 05791983 Code(s): R59.1 - GENERALIZED ENLARGED LYMPH NODES Status: Acute Priority : Medium Current Visit: No (21) Right inguinal hernia SNOMED Code(s): 096822081 Code(s): K40.90 - UNIL INGUINAL HERNIA, W/O OBST OR GANGR, NOT SPCF RECUR Status: Acute Priority: Medium Current Visit: No (22) New onset atrial fibrillation SNOMED Code(s): 44191141 Code(s): I48.91 - UNSPECIFIED ATRIAL FIBRILLATION Status: Acute Priority : High Current Visit: Yes (23) Atrial fibrillation with rapid ventricular response SNOMED Code(s): 570775754244408 Code(s): I48.91 - UNSPECIFIED ATRIAL FIBRILLATION Status: Acute Priority : High Current Visit: Yes (24) Hypotension SNOMED Code(s): 82726919 Code(s): I95.9 - HYPOTENSION, UNSPECIFIED Status: Acute Priority: High Current Visit: Yes Qualifiers: Hypotension type: unspecified hypotension type Qualified Code(s): I95.9 - Hypotension, unspecified - Problem List Review Problem List Initiated/Reviewed/Updated: Yes - My Orders Last 24 Hours: My Active Orders 12/14/19 11:46 EKG 12 Lead [EK] Routine 12/14/19 11:59 Patient Status [ADT] Stat 12/15/19 08:00 Echo Comp wo Cont [US] Routine - Plan Plan:: I/P: Acute: 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 - post-operative day 1 -DVT prophylaxis and pain management per primary care team -PT/OT -IS/RT -Monitor oxygen saturation -Titrate oxygen as needed -Home medications reviewed -Vital signs stable -Monitor labs -Pre-operative Hgb was 13.1; Now 9.7 -Pre-operative GFR was 69; Now >60 -Pre-operative AST was 38; Now 26 -Pre-operative calcium was 10.9; Now 8.4 -Pre-operative EKG showed a sinus rhythm with LAD Osteoarthritis of left hip -Pain management per primary care team A-fib with RVR, Resolved -New onset -Noted post-surgically -12-lead shows A-fib RVR with rate of 170; Repeat shows sinus rhythm -Denies symptoms -Cardizem IVP given -Cardizem drip -> discontinue -Telemetry -Upgraded to ICU status -> downgrade today to M/S/P with telemetry -[id number]-EUAp score of 1 (0.6% stroke risk per year.) -Echo obtained and pending -Recheck labs -Start warfarin with Lovenox bridging - 5mg today and pharmacy to dose thereafter Hypotension, improved -Acute on chronic -Patient reports she is normally at lower end of normal for BP -As low as 82/56; Now 108/49 -Worsened by above -IV fluids given with good response Hypomagnesemia -Magnesium 1.4 -Supplemented -Recheck today and in AM Chronic: Impaired vision cough suspected undiagnosed sleep apnea right inguinal hernia tubular adenoma renal calculus uterine prolapse cystocele osteoarthritis osteoporosis migraines vertigo anxiety depression thyroid nodule seborrheic keratosis dizziness lymphadenopathy elevated LFTs hypercalcemia abnormal chest x-ray with hyperinflation and questionable subtle evolving infiltrate Plan: Upgrade to ICU status for discharge planning GI prophylaxis Home medications as indicated Other orders as listed above Routine AM labs She is a full code. Her PCP is Dr. Harris Thank you for allowing us to participate in the care of this patient!!
[2019-12-15] MEDS: oxyCODONE 5 MG Tab PO PRN ×5 (07:46→22:52)
--- NOTE | 2019-12-15 08:11 | PCM48HPAN ---
Post Anesthesia Note - EVALUATION WITHIN 48HRS OF ANESTHETIC Vital Signs in Normal Range: Yes Patient Participated in Evaluation: Yes Respiratory Function Stable: Yes Airway Patent: Yes Cardiovascular Function Stable: Yes Hydration Status Stable: Yes Pain Control Satisfactory: Yes Nausea and Vomiting Control Satisfactory: Yes Mental Status Recovered: Yes (no complaints- ) Vital Signs: Last Vital Signs Temp 97.9 F 12/15/19 04:00 Pulse 69 12/14/19 15:00 Resp 18 12/15/19 04:00 BP 96/58 L 12/15/19 04:00 Pulse Ox 99 12/15/19 04:00
[2019-12-15] MEDS: Vitamin B Complex With Vitamin C Cap PO SCH (08:25)
[2019-12-15] MEDS: Docusate Sodium 100 MG Cap PO SCH ×2 (08:25→20:07)
[2019-12-15] MEDS: Cyclobenzaprine 10 MG Tab PO PRN ×3 (08:25→20:06)
[2019-12-15] MEDS: Famotidine 20 MG Tab PO SCH ×2 (08:25→20:06)
[2019-12-15] MEDS: Cholecalciferol (Vitamin D3) 5,000 UNIT Tab PO SCH (08:25)
[2019-12-15] MEDS: Saccharomyces Boulardii (Probiotic) 250 MG Cap PO SCH (08:26)
[2019-12-15] MEDS: Multivitamins,Therapeutic Tab PO SCH (08:26)
[2019-12-15] MEDS: Enoxaparin 60 MG/0.6 ML Syringe SUBCUT SCH ×2 (08:28→20:07)
--- NOTE | 2019-12-15 08:50 | PCM.SURGPN ---
- General Info Date of Service: 12/15/19 POD#: 1 Functional Status: Reports: Pain Controlled, Tolerating Diet, Urinating, Other ( The pt was transferred to ICU post-operatively due to a-fib.) - Patient Data Vitals - Most Recent: Last Vital Signs Temp 97.9 F 12/15/19 04:00 Pulse 69 12/14/19 15:00 Resp 18 12/15/19 04:00 BP 96/58 L 12/15/19 04:00 Pulse Ox 99 12/15/19 04:00 Weight - Most Recent: 141 lb 9.6 oz I&O - Last 24 Hours: Intake & Output 12/14/19 12/15/19 12/15/19 22:59 06:59 14:59 Intake Total 2190 1353 Output Total 1100 1000 Balance 1090 353 Lab Results Last 24 Hrs: Laboratory Results - last 24 hr 12/14/19 12/15/19 12/15/19 Range/Units 16:32 04:27 04:27 WBC 5.05 (3.98-10.04) K/mm3 RBC 3.11 L (3.98-5.22) M/mm3 Hgb 9.7 L D (11.2-15.7) gm/dl Hct 30.4 L (34.1-44.9) % MCV 97.7 H (79.4-94.8) fl MCH 31.2 (25.6-32.2) pg MCHC 31.9 L (32.2-35.5) g/dl RDW Std Deviation 45.2 (36.4-46.3) fL Plt Count 305 D (182-369) K/mm3 MPV 8.1 L (9.4-12.3) fl Sodium 135 L 132 L (136-145) mEq/L Potassium 4.1 4.2 (3.5-5.1) mEq/L Chloride 103 99 (98-107) mEq/L Carbon Dioxide 28 28 (21-32) mEq/L Anion Gap 8.1 9.2 (5-15) BUN 13 9 (7-18) mg/dL Creatinine 0.7 0.7 (0.55-1.02) mg/dL Est Cr Clr Drug Dosing 60.84 60.84 mL/min Estimated GFR (MDRD) > 60 > 60 (>60) mL/min BUN/Creatinine Ratio 18.6 H 12.9 L (14-18) Glucose 114 133 H (80-115) mg/dL Calcium 8.2 L 8.4 L (8.5-10.1) mg/dL Phosphorus 3.4 (2.6-4.7) mg/dL Magnesium 1.4 L (1.8-2.4) mg/dl Total Bilirubin 0.3 0.3 (0.2-1.0) mg/dL AST 24 26 (15-37) U/L ALT 26 23 (14-59) U/L Alkaline Phosphatase 72 72 (46-116) U/L Total Protein 5.2 L 5.4 L (6.4-8.2) g/dl Albumin 2.7 L 2.8 L (3.4-5.0) g/dl Globulin 2.5 2.6 gm/dL Albumin/Globulin Ratio 1.1 1.1 (1-2) Med Orders - Current: Current Medications Bisacodyl (Dulcolax) 5 mg PO DAILY PRN PRN Reason: Constipation Cholecalciferol (Vitamin D3) 5,000 unit PO DAILY [facility] Last Admin: 12/15/19 08:25 Dose: 5,000 unit Cyclobenzaprine HCl (Flexeril) 10 mg PO TID PRN PRN Reason: Spasms Last Admin: 12/15/19 08:25 Dose: 10 mg Docusate Sodium (Colace) 100 mg PO BID [facility] Last Admin: 12/15/19 08:25 Dose: 100 mg Enoxaparin Sodium (Lovenox) 60 mg SUBCUT BID [facility] Last Admin: 12/15/19 08:28 Dose: 60 mg Famotidine (Pepcid) 20 mg PO Q12H [facility] Last Admin: 12/15/19 08:25 Dose: 20 mg Diltiazem HCl 125 mg/ Sodium (Chloride) 125 mls @ 5 mls/hr IV TITRATE [facility]; Protocol Lactated Ringer's (Ringers, Lactated) 1,000 mls @ 100 mls/hr IV ASDIRECTED [facility] Last Admin: 12/15/19 03:03 Dose: 100 mls/hr Magnesium Hydroxide (Milk Of Magnesia) 30 ml PO BID PRN PRN Reason: Constipation Morphine Sulfate (Morphine) 2 mg IVPUSH Q2H PRN PRN Reason: Breakthrough Pain Last Admin: 12/14/19 18:09 Dose: 2 mg Multivitamins (Thera) 1 each PO DAILY [facility] Last Admin: 12/15/19 08:26 Dose: 1 each Naloxone HCl (Narcan) 0.1 mg IVPUSH Q5M PRN PRN Reason: Oversedation Ondansetron HCl (Zofran) 4 mg IVPUSH Q6H PRN PRN Reason: Nausea/Vomiting Last Admin: 12/14/19 21:59 Dose: 4 mg Oxycodone HCl (Oxycodone) 5 - 10 mg PO Q4H PRN PRN Reason: Pain Last Admin: 12/15/19 07:46 Dose: 5 mg Saccharomyces Boulardii (Florastor) 250 mg PO DAILY [facility] Last Admin: 12/15/19 08:26 Dose: 250 mg Senna (Senna) 8.6 mg PO BID PRN PRN Reason: Constipation Sodium Chloride (Saline Flush) 10 ml FLUSH ASDIRECTED PRN PRN Reason: Keep Vein Open Vitamin B Complex/Vitamin C (Super B With Vitamin C) 1 cap PO DAILY [facility] Last Admin: 12/15/19 08:25 Dose: 1 cap Discontinued Medications Acetaminophen (Tylenol) 975 mg PO ONETIME [facility] Stop: 12/14/19 12:00 Last Admin: 12/14/19 06:23 Dose: 975 mg Aspirin (Ecotrin) 325 mg PO BID [facility] Aspirin (Ecotrin) 325 mg PO BID [facility] Bupivacaine HCl (Sensorcaine-Mpf 0.25%) Confirm Administered Dose 30 ml .ROUTE .STK-MED ONE Stop: 12/14/19 06:16 Last Admin: 12/14/19 08:34 Dose: 30 ml Cefazolin Sodium (Ancef) Confirm Administered Dose 2 gm .ROUTE .STK-MED ONE Stop: 12/14/19 06:16 Last Admin: 12/14/19 08:31 Dose: 2 gm Cefazolin Sodium (Ancef) Confirm Administered Dose 2 gm .ROUTE .STK-MED ONE Stop: 12/14/19 06:59 Morphine Sulfate 8 mg/Epinephrine HCl 0.3 mg/Cefuroxime Sodium 750 mg/Ketorolac Tromethamine 30 mg/Sodium Chloride 27.9 ml 0 mg .XX ASDIRECTED PRN PRN Reason: Other Diltiazem HCl (Cardizem) 10 mg IVPUSH ONETIME STA Stop: 12/14/19 11:58 Last Admin: 12/14/19 12:17 Dose: 10 mg Diltiazem HCl (Cardizem) 15 mg IVPUSH ONETIME STA Stop: 12/14/19 12:22 Last Admin: 12/14/19 12:26 Dose: 15 mg Diltiazem HCl (Cardizem) 20 mg IVPUSH ONETIME ONE Stop: 12/14/19 13:09 Last Admin: 12/14/19 16:48 Dose: Not Given Diphenhydramine HCl (Benadryl) 25 mg IVPUSH Q6H PRN PRN Reason: itching Stop: 12/14/19 12:00 Ephedrine Sulfate (Ephedrine In Ns) Confirm Administered Dose 50 mg .ROUTE .STK- MED ONE Stop: 12/14/19 07:42 Ephedrine Sulfate (Ephedrine Sulfate) 5 mg IVPUSH ASDIRECTED PRN PRN Reason: Hypotension Stop: 12/14/19 12:00 Famotidine (Pepcid) 20 mg PO Q12H [facility] Last Admin: 12/14/19 13:40 Dose: Not Given Fentanyl (Sublimaze) Confirm Administered Dose 100 mcg .ROUTE .STK-MED ONE Stop: 12/14/19 06:59 Fentanyl (Sublimaze) 50 mcg IVPUSH Q5M PRN PRN Reason: pain Stop: 12/14/19 12:00 Hydromorphone HCl (Dilaudid) 0.5 mg IVPUSH Q15M PRN PRN Reason: Pain (severe 7-10) Stop: 12/14/19 12:00 Lactated Ringer's (Ringers, Lactated) 1,000 mls @ 125 mls/hr IV ASDIRECTED [facility] Last Admin: 12/14/19 06:41 Dose: 125 mls/hr Cefazolin Sodium/Dextrose 2 gm (/ Premix) 50 mls @ 100 mls/hr IV Q8H [facility] Stop: 12/14/19 23:14 Last Admin: 12/14/19 13:30 Dose: Not Given Lidocaine HCl (Xylocaine-Mpf 1%) Confirm Administered Dose 4 mls @ as directed .ROUTE .STK-MED ONE Stop: 12/14/19 06:51 Lactated Ringer's (Ringers, Lactated) Confirm Administered Dose 1,000 mls @ as directed .ROUTE .STK-MED ONE Stop: 12/14/19 06:59 Cefazolin Sodium/Dextrose 2 gm (/ Premix) 50 mls @ 100 mls/hr IV Q8H [facility] Stop: 12/15/19 07:29 Last Admin: 12/15/19 06:04 Dose: 100 mls/hr Lactated Ringer's (Ringers, Lactated) Confirm Administered Dose 1,000 mls @ as directed .ROUTE .STK-MED ONE Stop: 12/14/19 08:43 Diltiazem HCl 125 mg/ Sodium (Chloride) 125 mls @ 5 mls/hr IV TITRATE [facility]; Protocol Lactated Ringer's (Ringers, Lactated) 1,000 mls @ 999 mls/min IV .BOLUS ONE Stop: 12/14/19 13:06 Last Admin: 12/14/19 13:30 Dose: Not Given Lactated Ringer's (Ringers, Lactated) 500 mls @ 999 mls/min IV .BOLUS ONE Stop: 12/14/19 13:08 Last Admin: 12/14/19 16:12 Dose: 999 mls/min Magnesium Sulfate 2 gm/ Premix 50 mls @ 25 mls/hr IV Q1H [facility] Stop: 12/14/19 18:29 Last Admin: 12/14/19 17:37 Dose: 25 mls/hr Magnesium Sulfate 4 gm/ Premix 100 mls @ 25 mls/hr IV ONETIME ONE Stop: 12/14/19 22:29 Last Admin: 12/14/19 19:37 Dose: 25 mls/hr Iodine (Iodine 2% Mild Tincture) Confirm Administered Dose 30 ml .ROUTE .STK- MED ONE Stop: 12/14/19 06:16 Last Admin: 12/14/19 08:33 Dose: 18 ml Ketorolac Tromethamine (Toradol) 15 mg IVPUSH Q6H PRN PRN Reason: Pain Last Admin: 12/15/19 02:18 Dose: 15 mg Lidocaine/Sodium Bicarbonate (Buffered Lidocaine 1% In Ns 8.4%) 0.25 ml IDERM ONETIME PRN PRN Reason: Prior to IV Start Last Admin: 12/14/19 06:41 Dose: 0.25 ml Midazolam HCl (Versed 1 Mg/Ml) Confirm Administered Dose 2 mg .ROUTE .STK-MED ONE Stop: 12/14/19 06:59 Non-Formulary Medication (Potassium Gluconate [Potassium Gluconate]) 500 mg PO DAILY [facility] Non-Formulary Medication (Ubidecarenone) 100 mg PO DAILY [facility] Non-Formulary Medication (Vitamin A) 10,000 units PO DAILY [facility] Ondansetron HCl (Zofran) Confirm Administered Dose 4 mg .ROUTE .STK-MED ONE Stop: 12/14/19 07:36 Ondansetron HCl (Zofran) 4 mg IVPUSH ONETIME PRN PRN Reason: Nausea/Vomiting Stop: 12/14/19 12:00 Oxycodone HCl (Oxycontin) 10 mg PO ONETIME [facility] Stop: 12/14/19 12:00 Last Admin: 12/14/19 06:23 Dose: 10 mg Phenylephrine HCl (Phenylephrine In Ns 100 Mcg/Ml) Confirm Administered Dose 1 mg .ROUTE .STK-MED ONE Stop: 12/14/19 07:47 Pregabalin (Lyrica) 50 mg PO ONETIME [facility] Stop: 12/14/19 12:00 Last Admin: 12/14/19 06:23 Dose: 50 mg Propofol (Diprivan 20 Ml) Confirm Administered Dose 600 mg .ROUTE .STK-MED ONE Stop: 12/14/19 06:51 Tranexamic Acid (Cyklokapron) Confirm Administered Dose 1,000 mg .ROUTE .STK- MED ONE Stop: 12/14/19 06:16 Last Admin: 12/14/19 08:38 Dose: 1,000 mg Vancomycin HCl (Vancomycin) Confirm Administered Dose 1 gm .ROUTE .STK-MED ONE Stop: 12/14/19 06:16 Last Admin: 12/14/19 08:38 Dose: 1 gm - Exam Wound/Incisions: Dressing Dry and Intact General: Alert, Cooperative, No Acute Distress Lungs: Normal Respiratory Effort Extremities: Other (Left thigh soft. NVS intact for LLE. Amber's negative.) Sepsis Event Note - Evaluation Sepsis Screening Result: No Definite Risk - Focused Exam Vital Signs: Vital Signs Temp Resp BP Pulse Ox 12/15/19 04:00 97.9 F 18 96/58 L 99 12/15/19 00:00 97.1 F 18 99/54 L 100 Date Exam was Performed: 12/15/19 Time Exam was Performed: 08:46 - Problem List Review Problem List Initiated/Reviewed/Updated: Yes - My Orders Last 24 Hours: Active Orders 24 hr Category Date Time Status Patient Status [ADT] Stat ADT 12/14/19 11:59 Active Cooling Warming Measures [RC] ASDIRECTED Care 12/14/19 08:04 Inactive Regular Diet [DIET] Diet 12/14/19 Lunch Active Echo Comp wo Cont [US] Routine Exams 12/15/19 08:00 Ordered Cholecalciferol (Vitamin D3) [Vitamin D3] Med 12/15/19 09:00 Active 5,000 unit PO DAILY Diltiazem 125 mg Med 12/14/19 13:15 Active Sodium Chloride 0.9% [Normal Saline] 100 ml IV TITRATE Docusate Sodium [Colace] Med 12/14/19 21:00 Active 100 mg PO BID Enoxaparin [Lovenox] Med 12/14/19 21:00 Active 60 mg SUBCUT BID Famotidine [Pepcid] Med 12/14/19 21:00 Active 20 mg PO Q12H Lactated Ringers [Ringers, Lactated] 1,000 ml Med 12/14/19 17:00 Active IV ASDIRECTED Multivitamins,Therapeutic [Thera] Med 12/15/19 09:00 Active 1 each PO DAILY Saccharomyces Boulardii [Florastor] Med 12/15/19 09:00 Active 250 mg PO DAILY Vitamin B Complex with C [Super B With Vitamin C] Med 12/15/19 09:00 Active 1 cap PO DAILY EKG 12 Lead [EK] Routine Ther 12/14/19 11:46 Ordered EKG 12 Lead [EK] Routine Ther 12/14/19 15:09 Ordered Medication Orders Bisacodyl (Dulcolax) 5 mg PO DAILY PRN PRN Reason: Constipation Cholecalciferol (Vitamin D3) 5,000 unit PO DAILY [facility] Last Admin: 12/15/19 08:25 Dose: 5,000 unit Cyclobenzaprine HCl (Flexeril) 10 mg PO TID PRN PRN Reason: Spasms Last Admin: 12/15/19 08:25 Dose: 10 mg Docusate Sodium (Colace) 100 mg PO BID [facility] Last Admin: 12/15/19 08:25 Dose: 100 mg Admin: 12/14/19 20:00 Dose: 100 mg Enoxaparin Sodium (Lovenox) 60 mg SUBCUT BID [facility] Last Admin: 12/15/19 08:28 Dose: 60 mg Admin: 12/14/19 20:00 Dose: 60 mg Famotidine (Pepcid) 20 mg PO Q12H [facility] Last Admin: 12/15/19 08:25 Dose: 20 mg Admin: 12/14/19 19:59 Dose: 20 mg Diltiazem HCl 125 mg/ Sodium (Chloride) 125 mls @ 5 mls/hr IV TITRATE [facility]; Protocol Lactated Ringer's (Ringers, Lactated) 1,000 mls @ 100 mls/hr IV ASDIRECTED [facility] Last Admin: 12/15/19 03:03 Dose: 100 mls/hr Infusion: 12/15/19 02:58 Dose: 100 mls/hr Admin: 12/14/19 16:58 Dose: 100 mls/hr Magnesium Hydroxide (Milk Of Magnesia) 30 ml PO BID PRN PRN Reason: Constipation Morphine Sulfate (Morphine) 2 mg IVPUSH Q2H PRN PRN Reason: Breakthrough Pain Last Admin: 12/14/19 18:09 Dose: 2 mg Admin: 12/14/19 16:08 Dose: 2 mg Admin: 12/14/19 13:37 Dose: 2 mg Multivitamins (Thera) 1 each PO DAILY [facility] Last Admin: 12/15/19 08:26 Dose: 1 each Naloxone HCl (Narcan) 0.1 mg IVPUSH Q5M PRN PRN Reason: Oversedation Ondansetron HCl (Zofran) 4 mg IVPUSH Q6H PRN PRN Reason: Nausea/Vomiting Last Admin: 12/14/19 21:59 Dose: 4 mg Oxycodone HCl (Oxycodone) 5 - 10 mg PO Q4H PRN PRN Reason: Pain Last Admin: 12/15/19 07:46 Dose: 5 mg Admin: 12/14/19 21:28 Dose: 10 mg Admin: 12/14/19 16:08 Dose: 10 mg Admin: 12/14/19 09:41 Dose: 5 mg Saccharomyces Boulardii (Florastor) 250 mg PO DAILY [facility] Last Admin: 12/15/19 08:26 Dose: 250 mg Senna (Senna) 8.6 mg PO BID PRN PRN Reason: Constipation Sodium Chloride (Saline Flush) 10 ml FLUSH ASDIRECTED PRN PRN Reason: Keep Vein Open Vitamin B Complex/Vitamin C (Super B With Vitamin C) 1 cap PO DAILY [facility] Last Admin: 12/15/19 08:25 Dose: 1 cap - Assessment Assessment (Free Text/Narrative):: POD#1 - revision left hip acetabulum and femoral head - Plan Plan (Free Text/Narrative):: 1. Orders per Hospitalist service. The pt will remain in Hospital for continued monitoring and treatment. 2. Progress with therapy today as tolerated. 3. Hospitalist service has ordered Lovenox at this time and will transition to PO medication today for a-fib/VTE prophylaxis. 4. Hgb 9.7. The pt's case was discussed with Dr. [place].
[2019-12-15] MEDS ORDERED: Non-Formulary Medication 1 Each (Ubidecarenone 100 MG) PO SCH (09:00)
[2019-12-15] MEDS ORDERED: Aspirin 325 MG Tab.EC PO SCH (09:00)
[2019-12-15] MEDS ORDERED: VITAMIN A 10000 UNIT PO SCH (09:00)
[2019-12-15] MEDS ORDERED: POTASSIUM GLUCONATE 500 MG PO SCH (09:00)
[2019-12-15] MEDS: Morphine 2 MG/ML Syringe IVPUSH PRN ×3 (09:10→16:58)
[2019-12-15] MEDS: Ondansetron 4 MG/2 ML SDV IVPUSH PRN (10:14)
[2019-12-15] MEDS ORDERED: Ketorolac 15 MG/ML SDV IVPUSH ONE (11:30)
[2019-12-15] MEDS ORDERED: oxyCODONE 5 MG Tab PO ONE (11:30)
[2019-12-15] MEDS ORDERED: Warfarin 5 MG Tab PO SCH (18:00)
[2019-12-16] MEDS: Morphine 2 MG/ML Syringe IVPUSH PRN (00:01)
[2019-12-16] MEDS: oxyCODONE 5 MG Tab PO PRN ×3 (05:19→20:45)
[2019-12-16] MEDS: Famotidine 20 MG Tab PO SCH ×2 (08:07→20:43)
[2019-12-16] MEDS: Saccharomyces Boulardii (Probiotic) 250 MG Cap PO SCH (08:07)
[2019-12-16] MEDS: Vitamin B Complex With Vitamin C Cap PO SCH (08:07)
[2019-12-16] MEDS: Multivitamins,Therapeutic Tab PO SCH (08:07)
[2019-12-16] MEDS: Cholecalciferol (Vitamin D3) 5,000 UNIT Tab PO SCH (08:07)
[2019-12-16] MEDS: Docusate Sodium 100 MG Cap PO SCH ×2 (08:07→20:43)
[2019-12-16] MEDS: Enoxaparin 60 MG/0.6 ML Syringe SUBCUT SCH (08:08)
--- NOTE | 2019-12-16 08:45 | PCM.CONSN ---
- General Info Date of Service: 12/16/19 Admission Dx/Problem (Free Text): Admission Diagnosis/Problem Admission Diagnosis/Problem Hip pain Functional Status: Reports: Pain Controlled, Tolerating Diet, Ambulating, Urinating, Incentive Spirometry. Denies: New Symptoms - Review of Systems General: Reports: No Symptoms. Denies: Fever, Weakness, Fatigue, Malaise, Chills HEENT: Reports: No Symptoms. Denies: Headaches, Sore Throat Pulmonary: Reports: No Symptoms. Denies: Shortness of Breath, Cough, Sputum, Wheezing Cardiovascular: Reports: No Symptoms. Denies: Chest Pain, Palpitations Gastrointestinal: Reports: No Symptoms. Denies: Abdominal Pain, Constipation, Diarrhea, Nausea, Vomiting Genitourinary: Reports: No Symptoms. Denies: Pain Musculoskeletal: Reports: Leg Pain Skin: Reports: No Symptoms. Denies: Cyanosis Neurological: Reports: Difficulty Walking, Gait Disturbance. Denies: Confusion Psychiatric: Reports: No Symptoms - Patient Data Vitals - Most Recent: Last Vital Signs Temp 98.9 F 12/16/19 08:02 Pulse 69 12/14/19 15:00 Resp 16 12/16/19 08:02 BP 106/51 L 12/16/19 08:02 Pulse Ox 93 L 12/16/19 08:02 Weight - Most Recent: 148 lb I&O - Last 24 Hours: Intake & Output 12/15/19 12/16/19 12/16/19 22:59 06:59 14:59 Intake Total 2388 2000 Output Total 1050 2350 700 Balance 1338 -350 -700 Lab Results Last 24 Hours: Laboratory Results - last 24 hr 12/15/19 12/15/19 12/16/19 Range/Units 04:27 04:27 05:25 WBC 5.00 (3.98-10.04) K/mm3 RBC 2.77 L (3.98-5.22) M/mm3 Hgb 8.8 L (11.2-15.7) gm/dl Hct 27.7 L (34.1-44.9) % MCV 100.0 H (79.4-94.8) fl MCH 31.8 (25.6-32.2) pg MCHC 31.8 L (32.2-35.5) g/dl RDW Std Deviation 46.4 H (36.4-46.3) fL Plt Count 283 (182-369) K/mm3 MPV 8.6 L (9.4-12.3) fl Neut % (Auto) 56.4 (34.0-71.1) % Lymph % (Auto) 33.0 (19.3-51.7) % Aurora % (Auto) 8.4 (4.7-12.5) % Eos % (Auto) 1.8 (0.7-5.8) Baso % (Auto) 0.4 (0.1-1.2) % Neut # (Auto) 2.82 (1.56-6.13) K/mm3 Lymph # (Auto) 1.65 (1.18-3.74) K/mm3 Aurora # (Auto) 0.42 H (0.24-0.36) K/mm3 Eos # (Auto) 0.09 (0.04-0.36) K/mm3 Baso # (Auto) 0.02 (0.01-0.08) K/mm3 PT 10.3 (9.7-12.0) SECONDS INR 0.94 Sodium (136-145) mEq/L Potassium (3.5-5.1) mEq/L Chloride (98-107) mEq/L Carbon Dioxide (21-32) mEq/L Anion Gap (5-15) BUN (7-18) mg/dL Creatinine (0.55-1.02) mg/dL Est Cr Clr Drug Dosing mL/min Estimated GFR (MDRD) (>60) mL/min BUN/Creatinine Ratio (14-18) Glucose (80-115) mg/dL Calcium (8.5-10.1) mg/dL Phosphorus 3.7 (2.6-4.7) mg/dL Magnesium 2.5 H (1.8-2.4) mg/dl Total Bilirubin (0.2-1.0) mg/dL AST (15-37) U/L ALT (14-59) U/L Alkaline Phosphatase (46-116) U/L Total Protein (6.4-8.2) g/dl Albumin (3.4-5.0) g/dl Globulin gm/dL Albumin/Globulin Ratio (1-2) 12/16/19 12/16/19 Range/Units 05:25 05:25 WBC (3.98-10.04) K/mm3 RBC (3.98-5.22) M/mm3 Hgb (11.2-15.7) gm/dl Hct (34.1-44.9) % MCV (79.4-94.8) fl MCH (25.6-32.2) pg MCHC (32.2-35.5) g/dl RDW Std Deviation (36.4-46.3) fL Plt Count (182-369) K/mm3 MPV (9.4-12.3) fl Neut % (Auto) (34.0-71.1) % Lymph % (Auto) (19.3-51.7) % Aurora % (Auto) (4.7-12.5) % Eos % (Auto) (0.7-5.8) Baso % (Auto) (0.1-1.2) % Neut # (Auto) (1.56-6.13) K/mm3 Lymph # (Auto) (1.18-3.74) K/mm3 Aurora # (Auto) (0.24-0.36) K/mm3 Eos # (Auto) (0.04-0.36) K/mm3 Baso # (Auto) (0.01-0.08) K/mm3 PT 10.6 (9.7-12.0) SECONDS INR 0.97 Sodium 136 (136-145) mEq/L Potassium 4.3 (3.5-5.1) mEq/L Chloride 102 (98-107) mEq/L Carbon Dioxide 27 (21-32) mEq/L Anion Gap 11.3 (5-15) BUN 9 (7-18) mg/dL Creatinine 0.7 (0.55-1.02) mg/dL Est Cr Clr Drug Dosing 60.84 mL/min Estimated GFR (MDRD) > 60 (>60) mL/min BUN/Creatinine Ratio 12.9 L (14-18) Glucose 93 (80-115) mg/dL Calcium 8.5 (8.5-10.1) mg/dL Phosphorus 3.4 (2.6-4.7) mg/dL Magnesium 1.8 (1.8-2.4) mg/dl Total Bilirubin 0.3 (0.2-1.0) mg/dL AST 29 (15-37) U/L ALT 19 (14-59) U/L Alkaline Phosphatase 68 (46-116) U/L Total Protein 5.1 L (6.4-8.2) g/dl Albumin 2.5 L (3.4-5.0) g/dl Globulin 2.6 gm/dL Albumin/Globulin Ratio 1.0 (1-2) Med Orders - Current: Current Medications Bisacodyl (Dulcolax) 5 mg PO DAILY PRN PRN Reason: Constipation Cholecalciferol (Vitamin D3) 5,000 unit PO DAILY [facility] Last Admin: 12/16/19 08:07 Dose: 5,000 unit Cyclobenzaprine HCl (Flexeril) 10 mg PO TID PRN PRN Reason: Spasms Last Admin: 12/15/19 20:06 Dose: 10 mg Docusate Sodium (Colace) 100 mg PO BID [facility] Last Admin: 12/16/19 08:07 Dose: 100 mg Enoxaparin Sodium (Lovenox) 60 mg SUBCUT BID [facility] Last Admin: 12/16/19 08:08 Dose: 60 mg Famotidine (Pepcid) 20 mg PO Q12H [facility] Last Admin: 12/16/19 08:07 Dose: 20 mg Diltiazem HCl 125 mg/ Sodium (Chloride) 125 mls @ 5 mls/hr IV TITRATE [facility]; Protocol Lactated Ringer's (Ringers, Lactated) 1,000 mls @ 100 mls/hr IV ASDIRECTED [facility] Last Admin: 12/15/19 22:52 Dose: 100 mls/hr Magnesium Hydroxide (Milk Of Magnesia) 30 ml PO BID PRN PRN Reason: Constipation Morphine Sulfate (Morphine) 2 mg IVPUSH Q2H PRN PRN Reason: Breakthrough Pain Last Admin: 12/16/19 00:01 Dose: 2 mg Multivitamins (Thera) 1 each PO DAILY [facility] Last Admin: 12/16/19 08:07 Dose: 1 each Naloxone HCl (Narcan) 0.1 mg IVPUSH Q5M PRN PRN Reason: Oversedation Ondansetron HCl (Zofran) 4 mg IVPUSH Q6H PRN PRN Reason: Nausea/Vomiting Last Admin: 12/15/19 10:14 Dose: 4 mg Oxycodone HCl (Oxycodone) 5 - 10 mg PO Q4H PRN PRN Reason: Pain Last Admin: 12/16/19 05:19 Dose: 10 mg Saccharomyces Boulardii (Florastor) 250 mg PO DAILY [facility] Last Admin: 12/16/19 08:07 Dose: 250 mg Senna (Senna) 8.6 mg PO BID PRN PRN Reason: Constipation Last Admin: 12/16/19 08:07 Dose: 8.6 mg Sodium Chloride (Saline Flush) 10 ml FLUSH ASDIRECTED PRN PRN Reason: Keep Vein Open Vitamin B Complex/Vitamin C (Super B With Vitamin C) 1 cap PO DAILY [facility] Last Admin: 12/16/19 08:07 Dose: 1 cap Warfarin Sodium (Pharmacy To Dose - Warfarin) 1 dose .XX ASDIRECTED PRN PRN Reason: RX TO DOSE WARFARIN Discontinued Medications Acetaminophen (Tylenol) 975 mg PO ONETIME [facility] Stop: 12/14/19 12:00 Last Admin: 12/14/19 06:23 Dose: 975 mg Aspirin (Ecotrin) 325 mg PO BID [facility] Aspirin (Ecotrin) 325 mg PO BID [facility] Bupivacaine HCl (Sensorcaine-Mpf 0.25%) Confirm Administered Dose 30 ml .ROUTE .STK-MED ONE Stop: 12/14/19 06:16 Last Admin: 12/14/19 08:34 Dose: 30 ml Cefazolin Sodium (Ancef) Confirm Administered Dose 2 gm .ROUTE .STK-MED ONE Stop: 12/14/19 06:16 Last Admin: 12/14/19 08:31 Dose: 2 gm Cefazolin Sodium (Ancef) Confirm Administered Dose 2 gm .ROUTE .STK-MED ONE Stop: 12/14/19 06:59 Morphine Sulfate 8 mg/Epinephrine HCl 0.3 mg/Cefuroxime Sodium 750 mg/Ketorolac Tromethamine 30 mg/Sodium Chloride 27.9 ml 0 mg .XX ASDIRECTED PRN PRN Reason: Other Diltiazem HCl (Cardizem) 10 mg IVPUSH ONETIME [facility] Stop: 12/14/19 11:58 Last Admin: 12/14/19 12:17 Dose: 10 mg Diltiazem HCl (Cardizem) 15 mg IVPUSH ONETIME [facility] Stop: 12/14/19 12:22 Last Admin: 12/14/19 12:26 Dose: 15 mg Diltiazem HCl (Cardizem) 20 mg IVPUSH ONETIME ONE Stop: 12/14/19 13:09 Last Admin: 12/14/19 16:48 Dose: Not Given Diphenhydramine HCl (Benadryl) 25 mg IVPUSH Q6H PRN PRN Reason: itching Stop: 12/14/19 12:00 Ephedrine Sulfate (Ephedrine In Ns) Confirm Administered Dose 50 mg .ROUTE .STK- MED ONE Stop: 12/14/19 07:42 Ephedrine Sulfate (Ephedrine Sulfate) 5 mg IVPUSH ASDIRECTED PRN PRN Reason: Hypotension Stop: 12/14/19 12:00 Famotidine (Pepcid) 20 mg PO Q12H [facility] Last Admin: 12/14/19 13:40 Dose: Not Given Fentanyl (Sublimaze) Confirm Administered Dose 100 mcg .ROUTE .STK-MED ONE Stop: 12/14/19 06:59 Fentanyl (Sublimaze) 50 mcg IVPUSH Q5M PRN PRN Reason: pain Stop: 12/14/19 12:00 Hydromorphone HCl (Dilaudid) 0.5 mg IVPUSH Q15M PRN PRN Reason: Pain (severe 7-10) Stop: 12/14/19 12:00 Lactated Ringer's (Ringers, Lactated) 1,000 mls @ 125 mls/hr IV ASDIRECTED [facility] Last Admin: 12/14/19 06:41 Dose: 125 mls/hr Cefazolin Sodium/Dextrose 2 gm (/ Premix) 50 mls @ 100 mls/hr IV Q8H [facility] Stop: 12/14/19 23:14 Last Admin: 12/14/19 13:30 Dose: Not Given Lidocaine HCl (Xylocaine-Mpf 1%) Confirm Administered Dose 4 mls @ as directed .ROUTE .STK-MED ONE Stop: 12/14/19 06:51 Lactated Ringer's (Ringers, Lactated) Confirm Administered Dose 1,000 mls @ as directed .ROUTE .STK-MED ONE Stop: 12/14/19 06:59 Cefazolin Sodium/Dextrose 2 gm (/ Premix) 50 mls @ 100 mls/hr IV Q8H [facility] Stop: 12/15/19 07:29 Last Admin: 12/15/19 06:04 Dose: 100 mls/hr Lactated Ringer's (Ringers, Lactated) Confirm Administered Dose 1,000 mls @ as directed .ROUTE .STK-MED ONE Stop: 12/14/19 08:43 Diltiazem HCl 125 mg/ Sodium (Chloride) 125 mls @ 5 mls/hr IV TITRATE [facility]; Protocol Lactated Ringer's (Ringers, Lactated) 1,000 mls @ 999 mls/min IV .BOLUS ONE Stop: 12/14/19 13:06 Last Admin: 12/14/19 13:30 Dose: Not Given Lactated Ringer's (Ringers, Lactated) 500 mls @ 999 mls/min IV .BOLUS ONE Stop: 12/14/19 13:08 Last Admin: 12/14/19 16:12 Dose: 999 mls/min Magnesium Sulfate 2 gm/ Premix 50 mls @ 25 mls/hr IV Q1H [facility] Stop: 12/14/19 18:29 Last Admin: 12/14/19 17:37 Dose: 25 mls/hr Magnesium Sulfate 4 gm/ Premix 100 mls @ 25 mls/hr IV ONETIME ONE Stop: 12/14/19 22:29 Last Admin: 12/14/19 19:37 Dose: 25 mls/hr Iodine (Iodine 2% Mild Tincture) Confirm Administered Dose 30 ml .ROUTE .STK- MED ONE Stop: 12/14/19 06:16 Last Admin: 12/14/19 08:33 Dose: 18 ml Ketorolac Tromethamine (Toradol) 15 mg IVPUSH Q6H PRN PRN Reason: Pain Last Admin: 12/15/19 02:18 Dose: 15 mg Ketorolac Tromethamine (Toradol) 15 mg IVPUSH ONETIME ONE Stop: 12/15/19 11:31 Last Admin: 12/15/19 11:39 Dose: 15 mg Lidocaine/Sodium Bicarbonate (Buffered Lidocaine 1% In Ns 8.4%) 0.25 ml IDERM ONETIME PRN PRN Reason: Prior to IV Start Last Admin: 12/14/19 06:41 Dose: 0.25 ml Midazolam HCl (Versed 1 Mg/Ml) Confirm Administered Dose 2 mg .ROUTE .STK-MED ONE Stop: 12/14/19 06:59 Non-Formulary Medication (Potassium Gluconate [Potassium Gluconate]) 500 mg PO DAILY [facility] Non-Formulary Medication (Ubidecarenone) 100 mg PO DAILY [facility] Non-Formulary Medication (Vitamin A) 10,000 units PO DAILY [facility] Ondansetron HCl (Zofran) Confirm Administered Dose 4 mg .ROUTE .STK-MED ONE Stop: 12/14/19 07:36 Ondansetron HCl (Zofran) 4 mg IVPUSH ONETIME PRN PRN Reason: Nausea/Vomiting Stop: 12/14/19 12:00 Oxycodone HCl (Oxycontin) 10 mg PO ONETIME [facility] Stop: 12/14/19 12:00 Last Admin: 12/14/19 06:23 Dose: 10 mg Oxycodone HCl (Oxycodone) 5 mg PO ONETIME ONE Stop: 12/15/19 11:31 Last Admin: 12/15/19 11:43 Dose: 5 mg Phenylephrine HCl (Phenylephrine In Ns 100 Mcg/Ml) Confirm Administered Dose 1 mg .ROUTE .STK-MED ONE Stop: 12/14/19 07:47 Pregabalin (Lyrica) 50 mg PO ONETIME [facility] Stop: 12/14/19 12:00 Last Admin: 12/14/19 06:23 Dose: 50 mg Propofol (Diprivan 20 Ml) Confirm Administered Dose 600 mg .ROUTE .STK-MED ONE Stop: 12/14/19 06:51 Tranexamic Acid (Cyklokapron) Confirm Administered Dose 1,000 mg .ROUTE .STK- MED ONE Stop: 12/14/19 06:16 Last Admin: 12/14/19 08:38 Dose: 1,000 mg Vancomycin HCl (Vancomycin) Confirm Administered Dose 1 gm .ROUTE .STK-MED ONE Stop: 12/14/19 06:16 Last Admin: 12/14/19 08:38 Dose: 1 gm Warfarin Sodium (Coumadin) 5 mg PO QPM [facility] Stop: 12/15/19 18:01 Last Admin: 12/15/19 17:13 Dose: 5 mg - Exam Quality Assessment: DVT Prophylaxis General: Alert, Oriented, Cooperative, No Acute Distress HEENT: Pupils Equal, Pupils Reactive, EOMI, Mucous Membr. Moist/[place] Neck: Supple, Trachea Midline Lungs: Clear to Auscultation, Normal Respiratory Effort Cardiovascular: Regular Rate, Regular Rhythm GI/Abdominal Exam: Normal Bowel Sounds, Soft, Non-Tender, No Distention (Female) Exam: Deferred Back Exam: Normal Inspection, Full Range of Motion Extremities: Normal Capillary Refill, Leg Pain, Limited Range of Motion, Other ( Bandage in place on right leg. Cooling pack in place. ) Peripheral Pulses: 2+: Radial (L), Radial (R), Dorsalis Pedis (L), Dorsalis Pedis (R) Skin: Warm, Dry, Intact Wound/Incisions: Dressing Dry and Intact Neurological: No New Focal Deficit Psy/Mental Status: Alert, Normal Affect, Normal Mood Sepsis Event Note - Evaluation Sepsis Screening Result: No Definite Risk - Focused Exam Vital Signs: Vital Signs Temp Resp BP BP Pulse Ox Pulse Ox 12/16/19 08:02 98.9 F 16 106/51 L 93 L 12/16/19 06:26 108/52 L 97 12/16/19 06:25 100.1 F 18 108/52 L 100 12/16/19 06:10 84 L 12/16/19 06:00 97 12/16/19 05:58 98 12/16/19 05:00 100 12/16/19 04:00 100 12/16/19 03:00 99 12/16/19 02:23 99.7 F 18 111/56 L 98 12/16/19 02:17 111/56 L 93 L 12/16/19 02:16 93 L 12/16/19 02:00 98 12/16/19 01:00 97 12/16/19 00:00 93 L 12/15/19 23:00 95 12/15/19 22:00 99 12/15/19 21:00 98 Date Exam was Performed: 12/16/19 Time Exam was Performed: 15:24 Consult PN Assessment/Plan POD#: 2 Procedures: Procedures ASSAY OF CHROMIUM (06/10/19) BLOOD TYPING SEROLOGIC ABO (09/30/16) BLOOD TYPING SEROLOGIC RH(D) (09/30/16) BONE IMAGING 3 PHASE (05/06/17) CMBN ANT PST COLPRHY (10/01/16) COMP SCREEN MAMMOGRAM ADD-ON (07/20/14) COMPLETE CBC W/AUTO DIFF WBC (09/30/16) COMPREHEN METABOLIC PANEL (09/30/16) EXC H-F-NK-SP B9+BEATRIZ 1.1-2 (10/01/16) HEAVY METAL QUANT EACH ARMANDO (03/20/17) HYDRATE IV INFUSION ADD-ON (10/01/16) INSERT TEMP BLADDER CATH (10/01/16) LAP ING HERNIA REPAIR INIT (10/01/16) RBC ANTIBODY SCREEN (09/30/16) REPAIR BLADDER DEFECT (10/01/16) ROUTINE VENIPUNCTURE (03/20/17) SMEAR WET MOUNT SALINE/INK (10/23/16) THER/PROPH/DIAG INJ IV PUSH (10/01/16) TISSUE EXAM BY PATHOLOGIST (10/01/16) TISSUE EXAM BY PATHOLOGIST (10/01/16) TRICHOMONAS ASSAY W/OPTIC (10/23/16) TX/PRO/DX INJ SAME DRUG THEATER SET PRODUCTION DESIGNER (10/01/16) URINALYSIS AUTO W/O SCOPE (09/30/16) VAG HYST INCLUDING T/O (10/01/16) (1) Status post hip surgery SNOMED Code(s): 902292243, 185856276 Code(s): Z98.890 - OTHER SPECIFIED POSTPROCEDURAL STATES Priority: High Current Visit: Yes (2) Osteoarthritis SNOMED Code(s): 371902224 Code(s): M19.90 - UNSPECIFIED OSTEOARTHRITIS, UNSPECIFIED SITE Priority: High Current Visit: Yes Qualifiers: Osteoarthritis location: hip Osteoarthritis type: primary Laterality: right Qualified Code(s): M16.11 - Unilateral primary osteoarthritis, right hip (3) Impaired vision SNOMED Code(s): 698122253 Code(s): H54.7 - UNSPECIFIED VISUAL LOSS Priority: Low Current Visit: No (4) Cough SNOMED Code(s): 33620728 Code(s): R05 - COUGH Priority: Low Current Visit: No (5) Suspected sleep apnea SNOMED Code(s): 31914277 Code(s): R29.818 - OTHER SYMPTOMS AND SIGNS INVOLVING THE NERVOUS SYSTEM Priority: Medium Current Visit: No (6) Uterine prolapse SNOMED Code(s): 58676445 Code(s): N81.4 - UTEROVAGINAL PROLAPSE, UNSPECIFIED Priority: Low Current Visit: No (7) Cystocele SNOMED Code(s): 299437098 Code(s): UZQ4240 - Priority: Low Current Visit: No (8) Osteoporosis SNOMED Code(s): 64394431 Code(s): M81.0 - AGE-RELATED OSTEOPOROSIS W/O CURRENT PATHOLOGICAL FRACTURE Priority: Medium Current Visit: Yes Qualifiers: Osteoporosis type: unspecified Presence of current pathological fracture: unspecified Qualified Code(s): M81.0 - Age-related osteoporosis without current pathological fracture (9) Migraines SNOMED Code(s): 02781098 Code(s): G43.909 - MIGRAINE, UNSP, NOT INTRACTABLE, WITHOUT STATUS MIGRAINOSUS Priority: Low Current Visit: No Qualifiers: Migraine type: unspecified Status migrainosus presence: without status migrainosus Intractability: not intractable Qualified Code(s): G43.909 - Migraine, unspecified, not intractable, without status migrainosus (10) Vertigo SNOMED Code(s): 659322024 Code(s): R42 - DIZZINESS AND GIDDINESS Priority: Low Current Visit: No (11) Anxiety SNOMED Code(s): 78034353 Code(s): F41.9 - ANXIETY DISORDER, UNSPECIFIED Priority: Low Current Visit: No (12) Depression SNOMED Code(s): 12561806 Code(s): F32.9 - MAJOR DEPRESSIVE DISORDER, SINGLE EPISODE, UNSPECIFIED Priority: Low Current Visit: No Qualifiers: Depression Type: other depression Qualified Code(s): F32.89 - Other specified depressive episodes (13) Dizziness SNOMED Code(s): 907718374, 075972798 Code(s): R42 - DIZZINESS AND GIDDINESS Priority: Low Current Visit: No (14) Thyroid nodule SNOMED Code(s): 400386214 Code(s): E04.1 - NONTOXIC SINGLE THYROID NODULE Priority: Low Current Visit: No (15) Seborrheic keratoses SNOMED Code(s): 939509123 Code(s): L82.1 - OTHER SEBORRHEIC KERATOSIS Priority: Low Current Visit: No (16) History of tobacco use SNOMED Code(s): 064246406 Code(s): Z87.891 - PERSONAL HISTORY OF NICOTINE DEPENDENCE Priority: Medium Current Visit: No (17) Abnormal chest x-ray SNOMED Code(s): 803681391, 024348853 Code(s): R93.89 - ABNORMAL FINDINGS ON DX IMAGING OF OT BODY STRUCTURES Priority: Medium Current Visit: No (18) Elevated LFTs SNOMED Code(s): 048326865, 053296344 Code(s): R94.5 - ABNORMAL RESULTS OF LIVER FUNCTION STUDIES Priority: Medium Current Visit: No (19) Hypercalcemia SNOMED Code(s): 73418966 Code(s): E83.52 - HYPERCALCEMIA Priority: Medium Current Visit: No (20) Lymphadenopathy SNOMED Code(s): 92313013 Code(s): R59.1 - GENERALIZED ENLARGED LYMPH NODES Priority: Medium Current Visit: No (21) Right inguinal hernia SNOMED Code(s): 521291663 Code(s): K40.90 - UNIL INGUINAL HERNIA, W/O OBST OR GANGR, NOT SPCF RECUR Priority: Medium Current Visit: No (22) New onset atrial fibrillation SNOMED Code(s): 00073187 Code(s): I48.91 - UNSPECIFIED ATRIAL FIBRILLATION Priority: High Current Visit: Yes (23) Atrial fibrillation with rapid ventricular response SNOMED Code(s): 612569640233271 Code(s): I48.91 - UNSPECIFIED ATRIAL FIBRILLATION Priority: High Current Visit: Yes (24) Hypotension SNOMED Code(s): 08383215 Code(s): I95.9 - HYPOTENSION, UNSPECIFIED Priority: High Current Visit: Yes Qualifiers: Hypotension type: unspecified hypotension type Qualified Code(s): I95.9 - Hypotension, unspecified Problem List Initiated/Reviewed/Updated: Yes My Orders Last 24 Hours: My Active Orders 12/15/19 14:15 Pharmacy to Dose - Warfarin 1 dose .XX ASDIRECTED PRN 12/17/19 05:11 INR,PT,PROTHROMBIN TIME [[facility]] AM 12/18/19 05:11 INR,PT,PROTHROMBIN TIME [[facility]] AM Plan: I/P: Acute: 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 -Pre-operative GFR was 69; Now >60 -Pre-operative AST was 38; Now 26-->29 -Pre-operative calcium was 10.9; Now 8.4-->8.5 -Pre-operative EKG showed a sinus rhythm with LAD Osteoarthritis of left hip -Pain management per primary care team A-fib with RVR, Resolved -New onset -Noted post-surgically -12-lead shows A-fib RVR with rate of 170; Repeat shows sinus rhythm -Denies symptoms -Cardizem IVP given -Converted prior to Cardizem drip being initiated -Telemetry -Upgraded to ICU status -> downgraded to M/S/P with telemetry -[id number] score of 1 (0.6% stroke risk per year.) -Echo obtained -Will D/C lovenox and warfarin - Start BID ASA Hypotension, improved and stable -Acute on chronic -Patient reports she is normally at lower end of normal for BP -As low as 82/56; Now 108/49 -Worsened by above -IV fluids given with good response Hypomagnesemia, resolved -Magnesium 1.4-->2.5-->1.8 -Supplemented Chronic: Impaired vision cough suspected undiagnosed sleep apnea right inguinal hernia tubular adenoma renal calculus uterine prolapse cystocele osteoarthritis osteoporosis migraines vertigo anxiety depression thyroid nodule seborrheic keratosis dizziness lymphadenopathy elevated LFTs hypercalcemia abnormal chest x-ray with hyperinflation and questionable subtle evolving infiltrate Plan: Upgrade to ICU status-> downgraded to floor status CM for discharge planning GI prophylaxis Home medications as indicated Other orders as listed above Routine AM labs She is a full code. Her PCP is Dr. Harris Thank you for allowing us to participate in the care of this patient!!
[2019-12-16] MEDS ORDERED: Magnesium Sulfate/Water 2 GM in Premix Bag 1 BAG IV ONE (09:30)
[2019-12-16] MEDS ORDERED: Magnesium Oxide 400 MG Tab PO ONE (10:15)
[2019-12-16] MEDS ORDERED: Warfarin 5 MG Tab PO SCH (18:00)
--- NOTE | 2019-12-16 18:11 | PCM.SURGPN ---
- General Info Date of Service: 12/16/19 POD#: 2 Functional Status: Reports: Pain Controlled, Tolerating Diet, Ambulating, Urinating, Incentive Spirometry, Other (The pt states her mobility has improved. ) - Patient Data Vitals - Most Recent: Last Vital Signs Temp 98.6 F 12/16/19 16:00 Pulse 69 12/14/19 15:00 Resp 18 12/16/19 16:00 BP 102/56 L 12/16/19 16:00 Pulse Ox 95 12/16/19 16:00 Weight - Most Recent: 148 lb I&O - Last 24 Hours: Intake & Output 12/16/19 12/16/19 12/16/19 06:59 14:59 22:59 Intake Total 1999 72 1590 Output Total 2349 2900 1200 Balance -350 -2178 390 Lab Results Last 24 Hrs: Laboratory Results - last 24 hr 12/16/19 12/16/19 12/16/19 Range/Units 05:25 05:25 05:25 WBC 5.00 (3.98-10.04) K/mm3 RBC 2.77 L (3.98-5.22) M/mm3 Hgb 8.8 L (11.2-15.7) gm/dl Hct 27.7 L (34.1-44.9) % MCV 100.0 H (79.4-94.8) fl MCH 31.8 (25.6-32.2) pg MCHC 31.8 L (32.2-35.5) g/dl RDW Std Deviation 46.4 H (36.4-46.3) fL Plt Count 283 (182-369) K/mm3 MPV 8.6 L (9.4-12.3) fl Neut % (Auto) 56.4 (34.0-71.1) % Lymph % (Auto) 33.0 (19.3-51.7) % Moore % (Auto) 8.4 (4.7-12.5) % Eos % (Auto) 1.8 (0.7-5.8) Baso % (Auto) 0.4 (0.1-1.2) % Neut # (Auto) 2.82 (1.56-6.13) K/mm3 Lymph # (Auto) 1.65 (1.18-3.74) K/mm3 Moore # (Auto) 0.42 H (0.24-0.36) K/mm3 Eos # (Auto) 0.09 (0.04-0.36) K/mm3 Baso # (Auto) 0.02 (0.01-0.08) K/mm3 PT 10.6 (9.7-12.0) SECONDS INR 0.97 Sodium 136 (136-145) mEq/L Potassium 4.3 (3.5-5.1) mEq/L Chloride 102 (98-107) mEq/L Carbon Dioxide 27 (21-32) mEq/L Anion Gap 11.3 (5-15) BUN 9 (7-18) mg/dL Creatinine 0.7 (0.55-1.02) mg/dL Est Cr Clr Drug Dosing 60.84 mL/min Estimated GFR (MDRD) > 60 (>60) mL/min BUN/Creatinine Ratio 12.9 L (14-18) Glucose 93 (80-115) mg/dL Calcium 8.5 (8.5-10.1) mg/dL Phosphorus 3.4 (2.6-4.7) mg/dL Magnesium 1.8 (1.8-2.4) mg/dl Total Bilirubin 0.3 (0.2-1.0) mg/dL AST 29 (15-37) U/L ALT 19 (14-59) U/L Alkaline Phosphatase 68 (46-116) U/L Total Protein 5.1 L (6.4-8.2) g/dl Albumin 2.5 L (3.4-5.0) g/dl Globulin 2.6 gm/dL Albumin/Globulin Ratio 1.0 (1-2) 12/16/19 Range/Units 13:02 WBC (3.98-10.04) K/mm3 RBC (3.98-5.22) M/mm3 Hgb 8.9 L (11.2-15.7) gm/dl Hct 28.5 L (34.1-44.9) % MCV (79.4-94.8) fl MCH (25.6-32.2) pg MCHC (32.2-35.5) g/dl RDW Std Deviation (36.4-46.3) fL Plt Count (182-369) K/mm3 MPV (9.4-12.3) fl Neut % (Auto) (34.0-71.1) % Lymph % (Auto) (19.3-51.7) % Moore % (Auto) (4.7-12.5) % Eos % (Auto) (0.7-5.8) Baso % (Auto) (0.1-1.2) % Neut # (Auto) (1.56-6.13) K/mm3 Lymph # (Auto) (1.18-3.74) K/mm3 Moore # (Auto) (0.24-0.36) K/mm3 Eos # (Auto) (0.04-0.36) K/mm3 Baso # (Auto) (0.01-0.08) K/mm3 PT (9.7-12.0) SECONDS INR Sodium (136-145) mEq/L Potassium (3.5-5.1) mEq/L Chloride (98-107) mEq/L Carbon Dioxide (21-32) mEq/L Anion Gap (5-15) BUN (7-18) mg/dL Creatinine (0.55-1.02) mg/dL Est Cr Clr Drug Dosing mL/min Estimated GFR (MDRD) (>60) mL/min BUN/Creatinine Ratio (14-18) Glucose (80-115) mg/dL Calcium (8.5-10.1) mg/dL Phosphorus (2.6-4.7) mg/dL Magnesium (1.8-2.4) mg/dl Total Bilirubin (0.2-1.0) mg/dL AST (15-37) U/L ALT (14-59) U/L Alkaline Phosphatase (46-116) U/L Total Protein (6.4-8.2) g/dl Albumin (3.4-5.0) g/dl Globulin gm/dL Albumin/Globulin Ratio (1-2) Med Orders - Current: Current Medications Aspirin (Ecotrin) 325 mg PO BID [facility] Bisacodyl (Dulcolax) 5 mg PO DAILY PRN PRN Reason: Constipation Cholecalciferol (Vitamin D3) 5,000 unit PO DAILY [facility] Last Admin: 12/16/19 08:07 Dose: 5,000 unit Cyclobenzaprine HCl (Flexeril) 10 mg PO TID PRN PRN Reason: Spasms Last Admin: 12/15/19 20:06 Dose: 10 mg Docusate Sodium (Colace) 100 mg PO BID [facility] Last Admin: 12/16/19 08:07 Dose: 100 mg Famotidine (Pepcid) 20 mg PO Q12H [facility] Last Admin: 12/16/19 08:07 Dose: 20 mg Magnesium Hydroxide (Milk Of Magnesia) 30 ml PO BID PRN PRN Reason: Constipation Magnesium Oxide (Magnesium Oxide) 800 mg PO DAILY [facility] Morphine Sulfate (Morphine) 2 mg IVPUSH Q2H PRN PRN Reason: Breakthrough Pain Last Admin: 12/16/19 00:01 Dose: 2 mg Multivitamins (Thera) 1 each PO DAILY [facility] Last Admin: 12/16/19 08:07 Dose: 1 each Naloxone HCl (Narcan) 0.1 mg IVPUSH Q5M PRN PRN Reason: Oversedation Ondansetron HCl (Zofran) 4 mg IVPUSH Q6H PRN PRN Reason: Nausea/Vomiting Last Admin: 12/15/19 10:14 Dose: 4 mg Oxycodone HCl (Oxycodone) 5 - 10 mg PO Q4H PRN PRN Reason: Pain Last Admin: 12/16/19 11:18 Dose: 5 mg Saccharomyces Boulardii (Florastor) 250 mg PO DAILY [facility] Last Admin: 12/16/19 08:07 Dose: 250 mg Senna (Senna) 8.6 mg PO BID PRN PRN Reason: Constipation Last Admin: 12/16/19 08:07 Dose: 8.6 mg Vitamin B Complex/Vitamin C (Super B With Vitamin C) 1 cap PO DAILY [facility] Last Admin: 12/16/19 08:07 Dose: 1 cap Discontinued Medications Acetaminophen (Tylenol) 975 mg PO ONETIME [facility] Stop: 12/14/19 12:00 Last Admin: 12/14/19 06:23 Dose: 975 mg Aspirin (Ecotrin) 325 mg PO BID [facility] Aspirin (Ecotrin) 325 mg PO BID [facility] Bupivacaine HCl (Sensorcaine-Mpf 0.25%) Confirm Administered Dose 30 ml .ROUTE .STK-MED ONE Stop: 12/14/19 06:16 Last Admin: 12/14/19 08:34 Dose: 30 ml Cefazolin Sodium (Ancef) Confirm Administered Dose 2 gm .ROUTE .STK-MED ONE Stop: 12/14/19 06:16 Last Admin: 12/14/19 08:31 Dose: 2 gm Cefazolin Sodium (Ancef) Confirm Administered Dose 2 gm .ROUTE .STK-MED ONE Stop: 12/14/19 06:59 Morphine Sulfate 8 mg/Epinephrine HCl 0.3 mg/Cefuroxime Sodium 750 mg/Ketorolac Tromethamine 30 mg/Sodium Chloride 27.9 ml 0 mg .XX ASDIRECTED PRN PRN Reason: Other Diltiazem HCl (Cardizem) 10 mg IVPUSH ONETIME STA Stop: 12/14/19 11:58 Last Admin: 12/14/19 12:17 Dose: 10 mg Diltiazem HCl (Cardizem) 15 mg IVPUSH ONETIME STA Stop: 12/14/19 12:22 Last Admin: 12/14/19 12:26 Dose: 15 mg Diltiazem HCl (Cardizem) 20 mg IVPUSH ONETIME ONE Stop: 12/14/19 13:09 Last Admin: 12/14/19 16:48 Dose: Not Given Diphenhydramine HCl (Benadryl) 25 mg IVPUSH Q6H PRN PRN Reason: itching Stop: 12/14/19 12:00 Enoxaparin Sodium (Lovenox) 60 mg SUBCUT BID [facility] Last Admin: 12/16/19 08:08 Dose: 60 mg Ephedrine Sulfate (Ephedrine In Ns) Confirm Administered Dose 50 mg .ROUTE .STK- MED ONE Stop: 12/14/19 07:42 Ephedrine Sulfate (Ephedrine Sulfate) 5 mg IVPUSH ASDIRECTED PRN PRN Reason: Hypotension Stop: 12/14/19 12:00 Famotidine (Pepcid) 20 mg PO Q12H [facility] Last Admin: 12/14/19 13:40 Dose: Not Given Fentanyl (Sublimaze) Confirm Administered Dose 100 mcg .ROUTE .STK-MED ONE Stop: 12/14/19 06:59 Fentanyl (Sublimaze) 50 mcg IVPUSH Q5M PRN PRN Reason: pain Stop: 12/14/19 12:00 Hydromorphone HCl (Dilaudid) 0.5 mg IVPUSH Q15M PRN PRN Reason: Pain (severe 7-10) Stop: 12/14/19 12:00 Lactated Ringer's (Ringers, Lactated) 1,000 mls @ 125 mls/hr IV ASDIRECTED [facility] Last Admin: 12/14/19 06:41 Dose: 125 mls/hr Cefazolin Sodium/Dextrose 2 gm (/ Premix) 50 mls @ 100 mls/hr IV Q8H [facility] Stop: 12/14/19 23:14 Last Admin: 12/14/19 13:30 Dose: Not Given Lidocaine HCl (Xylocaine-Mpf 1%) Confirm Administered Dose 4 mls @ as directed .ROUTE .STK-MED ONE Stop: 12/14/19 06:51 Lactated Ringer's (Ringers, Lactated) Confirm Administered Dose 1,000 mls @ as directed .ROUTE .STK-MED ONE Stop: 12/14/19 06:59 Cefazolin Sodium/Dextrose 2 gm (/ Premix) 50 mls @ 100 mls/hr IV Q8H [facility] Stop: 12/15/19 07:29 Last Admin: 12/15/19 06:04 Dose: 100 mls/hr Lactated Ringer's (Ringers, Lactated) Confirm Administered Dose 1,000 mls @ as directed .ROUTE .STK-MED ONE Stop: 12/14/19 08:43 Diltiazem HCl 125 mg/ Sodium (Chloride) 125 mls @ 5 mls/hr IV TITRATE [facility]; Protocol Diltiazem HCl 125 mg/ Sodium (Chloride) 125 mls @ 5 mls/hr IV TITRATE [facility]; Protocol Lactated Ringer's (Ringers, Lactated) 1,000 mls @ 999 mls/min IV .BOLUS ONE Stop: 12/14/19 13:06 Last Admin: 12/14/19 13:30 Dose: Not Given Lactated Ringer's (Ringers, Lactated) 500 mls @ 999 mls/min IV .BOLUS ONE Stop: 12/14/19 13:08 Last Admin: 12/14/19 16:12 Dose: 999 mls/min Lactated Ringer's (Ringers, Lactated) 1,000 mls @ 100 mls/hr IV ASDIRECTED [facility] Last Admin: 12/15/19 22:52 Dose: 100 mls/hr Magnesium Sulfate 2 gm/ Premix 50 mls @ 25 mls/hr IV Q1H [facility] Stop: 12/14/19 18:29 Last Admin: 12/14/19 17:37 Dose: 25 mls/hr Magnesium Sulfate 4 gm/ Premix 100 mls @ 25 mls/hr IV ONETIME ONE Stop: 12/14/19 22:29 Last Admin: 12/14/19 19:37 Dose: 25 mls/hr Magnesium Sulfate 2 gm/ Premix 50 mls @ 25 mls/hr IV ONETIME ONE Stop: 12/16/19 11:29 Last Admin: 12/16/19 09:33 Dose: 25 mls/hr Iodine (Iodine 2% Mild Tincture) Confirm Administered Dose 30 ml .ROUTE .STK- MED ONE Stop: 12/14/19 06:16 Last Admin: 12/14/19 08:33 Dose: 18 ml Ketorolac Tromethamine (Toradol) 15 mg IVPUSH Q6H PRN PRN Reason: Pain Last Admin: 12/15/19 02:18 Dose: 15 mg Ketorolac Tromethamine (Toradol) 15 mg IVPUSH ONETIME ONE Stop: 12/15/19 11:31 Last Admin: 12/15/19 11:39 Dose: 15 mg Lidocaine/Sodium Bicarbonate (Buffered Lidocaine 1% In Ns 8.4%) 0.25 ml IDERM ONETIME PRN PRN Reason: Prior to IV Start Last Admin: 12/14/19 06:41 Dose: 0.25 ml Magnesium Oxide (Magnesium Oxide) 800 mg PO ONETIME ONE Stop: 12/16/19 10:16 Last Admin: 12/16/19 10:20 Dose: 800 mg Midazolam HCl (Versed 1 Mg/Ml) Confirm Administered Dose 2 mg .ROUTE .STK-MED ONE Stop: 12/14/19 06:59 Non-Formulary Medication (Potassium Gluconate [Potassium Gluconate]) 500 mg PO DAILY [facility] Non-Formulary Medication (Ubidecarenone) 100 mg PO DAILY [facility] Non-Formulary Medication (Vitamin A) 10,000 units PO DAILY [facility] Ondansetron HCl (Zofran) Confirm Administered Dose 4 mg .ROUTE .STK-MED ONE Stop: 12/14/19 07:36 Ondansetron HCl (Zofran) 4 mg IVPUSH ONETIME PRN PRN Reason: Nausea/Vomiting Stop: 12/14/19 12:00 Oxycodone HCl (Oxycontin) 10 mg PO ONETIME [facility] Stop: 12/14/19 12:00 Last Admin: 12/14/19 06:23 Dose: 10 mg Oxycodone HCl (Oxycodone) 5 mg PO ONETIME ONE Stop: 12/15/19 11:31 Last Admin: 12/15/19 11:43 Dose: 5 mg Phenylephrine HCl (Phenylephrine In Ns 100 Mcg/Ml) Confirm Administered Dose 1 mg .ROUTE .STK-MED ONE Stop: 12/14/19 07:47 Pregabalin (Lyrica) 50 mg PO ONETIME [facility] Stop: 12/14/19 12:00 Last Admin: 12/14/19 06:23 Dose: 50 mg Propofol (Diprivan 20 Ml) Confirm Administered Dose 600 mg .ROUTE .STK-MED ONE Stop: 12/14/19 06:51 Sodium Chloride (Saline Flush) 10 ml FLUSH ASDIRECTED PRN PRN Reason: Keep Vein Open Tranexamic Acid (Cyklokapron) Confirm Administered Dose 1,000 mg .ROUTE .STK- MED ONE Stop: 12/14/19 06:16 Last Admin: 12/14/19 08:38 Dose: 1,000 mg Vancomycin HCl (Vancomycin) Confirm Administered Dose 1 gm .ROUTE .STK-MED ONE Stop: 12/14/19 06:16 Last Admin: 12/14/19 08:38 Dose: 1 gm Warfarin Sodium (Pharmacy To Dose - Warfarin) 1 dose .XX ASDIRECTED PRN PRN Reason: RX TO DOSE WARFARIN Warfarin Sodium (Coumadin) 5 mg PO QPM [facility] Stop: 12/15/19 18:01 Last Admin: 12/15/19 17:13 Dose: 5 mg Warfarin Sodium (Coumadin) 5 mg PO QPM [facility] Stop: 12/16/19 18:01 - Exam Wound/Incisions: Dressing Dry and Intact General: Alert, Cooperative, No Acute Distress Lungs: Normal Respiratory Effort Extremities: Other (NVS intact for LLE. Amber's negative. Left thigh soft.) Sepsis Event Note - Evaluation Sepsis Screening Result: No Definite Risk - Focused Exam Vital Signs: Vital Signs Temp Resp BP BP Pulse Ox Pulse Ox 12/16/19 16:00 98.6 F 18 102/56 L 95 12/16/19 08:02 98.9 F 16 106/51 L 93 L 12/16/19 06:26 108/52 L 97 12/16/19 06:25 100.1 F 18 108/52 L 100 12/16/19 06:10 84 L Date Exam was Performed: 12/16/19 Time Exam was Performed: 18:09 - Problem List Review Problem List Initiated/Reviewed/Updated: Yes - My Orders Last 24 Hours: Active Orders 24 hr Category Date Time Status CBC WITH AUTO DIFF [HEME] AM Lab 12/17/19 05:11 Ordered CMP [COMPREHENSIVE METABOLIC PN,CMP] [CHEM] AM Lab 12/17/19 05:11 Ordered MAGNESIUM [CHEM] AM Lab 12/17/19 05:11 Ordered Aspirin [Ecotrin] Med 12/17/19 09:00 Active 325 mg PO BID Magnesium Oxide Med 12/17/19 09:00 Active 800 mg PO DAILY Medication Orders Aspirin (Ecotrin) 325 mg PO BID [facility] Bisacodyl (Dulcolax) 5 mg PO DAILY PRN PRN Reason: Constipation Cholecalciferol (Vitamin D3) 5,000 unit PO DAILY [facility] Last Admin: 12/16/19 08:07 Dose: 5,000 unit Admin: 12/15/19 08:25 Dose: 5,000 unit Cyclobenzaprine HCl (Flexeril) 10 mg PO TID PRN PRN Reason: Spasms Last Admin: 12/15/19 20:06 Dose: 10 mg Admin: 12/15/19 14:38 Dose: 10 mg Admin: 12/15/19 08:25 Dose: 10 mg Docusate Sodium (Colace) 100 mg PO BID [facility] Last Admin: 12/16/19 08:07 Dose: 100 mg Admin: 12/15/19 20:07 Dose: 100 mg Admin: 12/15/19 08:25 Dose: 100 mg Admin: 12/14/19 20:00 Dose: 100 mg Famotidine (Pepcid) 20 mg PO Q12H [facility] Last Admin: 12/16/19 08:07 Dose: 20 mg Admin: 12/15/19 20:06 Dose: 20 mg Admin: 12/15/19 08:25 Dose: 20 mg Admin: 12/14/19 19:59 Dose: 20 mg Magnesium Hydroxide (Milk Of Magnesia) 30 ml PO BID PRN PRN Reason: Constipation Magnesium Oxide (Magnesium Oxide) 800 mg PO DAILY [facility] Morphine Sulfate (Morphine) 2 mg IVPUSH Q2H PRN PRN Reason: Breakthrough Pain Last Admin: 12/16/19 00:01 Dose: 2 mg Admin: 12/15/19 16:58 Dose: 2 mg Admin: 12/15/19 10:52 Dose: 2 mg Admin: 12/15/19 09:10 Dose: 2 mg Admin: 12/14/19 18:09 Dose: 2 mg Admin: 12/14/19 16:08 Dose: 2 mg Admin: 12/14/19 13:37 Dose: 2 mg Multivitamins (Thera) 1 each PO DAILY [facility] Last Admin: 12/16/19 08:07 Dose: 1 each Admin: 12/15/19 08:26 Dose: 1 each Naloxone HCl (Narcan) 0.1 mg IVPUSH Q5M PRN PRN Reason: Oversedation Ondansetron HCl (Zofran) 4 mg IVPUSH Q6H PRN PRN Reason: Nausea/Vomiting Last Admin: 12/15/19 10:14 Dose: 4 mg Admin: 12/14/19 21:59 Dose: 4 mg Oxycodone HCl (Oxycodone) 5 - 10 mg PO Q4H PRN PRN Reason: Pain Last Admin: 12/16/19 11:18 Dose: 5 mg Admin: 12/16/19 05:19 Dose: 10 mg Admin: 12/15/19 22:52 Dose: 10 mg Admin: 12/15/19 15:29 Dose: 5 mg Admin: 12/15/19 14:40 Dose: 5 mg Admin: 12/15/19 10:35 Dose: 5 mg Admin: 12/15/19 07:46 Dose: 5 mg Admin: 12/14/19 21:28 Dose: 10 mg Admin: 12/14/19 16:08 Dose: 10 mg Admin: 12/14/19 09:41 Dose: 5 mg Saccharomyces Boulardii (Florastor) 250 mg PO DAILY [facility] Last Admin: 12/16/19 08:07 Dose: 250 mg Admin: 12/15/19 08:26 Dose: 250 mg Senna (Senna) 8.6 mg PO BID PRN PRN Reason: Constipation Last Admin: 12/16/19 08:07 Dose: 8.6 mg Vitamin B Complex/Vitamin C (Super B With Vitamin C) 1 cap PO DAILY [facility] Last Admin: 12/16/19 08:07 Dose: 1 cap Admin: 12/15/19 08:25 Dose: 1 cap - Assessment Assessment (Free Text/Narrative):: POD#2 - left revision of acetabulum and femoral head - Plan Plan (Free Text/Narrative):: 1. Orders per Hospitalist service. 2. VTE prophylaxis discussed with Hospitalist service. 3. BIJAN precautions. WBAT LLE. 4. Discharge to home when medically cleared. The pt's case was discussed with Dr. Spain.
[2019-12-16] MEDS: Cyclobenzaprine 10 MG Tab PO PRN (20:44)
--- NOTE | 2019-12-17 07:45 | PCM.CONSN ---
- General Info Date of Service: 12/17/19 Admission Dx/Problem (Free Text): Admission Diagnosis/Problem Admission Diagnosis/Problem Hip pain Functional Status: Reports: Pain Controlled, Tolerating Diet, Ambulating, Urinating, Incentive Spirometry. Denies: New Symptoms - Review of Systems General: Reports: No Symptoms. Denies: Fever, Weakness, Fatigue, Malaise, Chills HEENT: Reports: No Symptoms. Denies: Headaches, Sore Throat Pulmonary: Reports: No Symptoms. Denies: Shortness of Breath, Pleuritic Chest Pain, Cough, Sputum, Wheezing Cardiovascular: Reports: No Symptoms. Denies: Chest Pain, Palpitations Gastrointestinal: Reports: No Symptoms. Denies: Abdominal Pain, Constipation, Diarrhea, Nausea, Vomiting Genitourinary: Reports: No Symptoms Musculoskeletal: Reports: Leg Pain Skin: Reports: No Symptoms. Denies: Cyanosis Neurological: Reports: No Symptoms, Difficulty Walking, Gait Disturbance. Denies: Confusion, Weakness Psychiatric: Reports: No Symptoms - Patient Data Vitals - Most Recent: Last Vital Signs Temp 98.5 F 12/17/19 04:54 Pulse 69 12/14/19 15:00 Resp 16 12/17/19 04:54 BP 108/56 L 12/17/19 04:54 Pulse Ox 96 12/17/19 04:54 Weight - Most Recent: 136 lb I&O - Last 24 Hours: Intake & Output 12/16/19 12/17/19 12/17/19 22:59 06:59 14:59 Intake Total 1590 800 Output Total 2500 1200 Balance -910 -400 Lab Results Last 24 Hours: Laboratory Results - last 24 hr 12/16/19 12/17/19 12/17/19 Range/Units 13:02 05:07 05:07 WBC 4.86 (3.98-10.04) K/mm3 RBC 2.68 L (3.98-5.22) M/mm3 Hgb 8.9 L 8.7 L (11.2-15.7) gm/dl Hct 28.5 L 26.0 L (34.1-44.9) % MCV 97.0 H D (79.4-94.8) fl MCH 32.5 H (25.6-32.2) pg MCHC 33.5 (32.2-35.5) g/dl RDW Std Deviation 44.9 (36.4-46.3) fL Plt Count 276 (182-369) K/mm3 MPV 8.3 L (9.4-12.3) fl Neut % (Auto) 48.3 (34.0-71.1) % Lymph % (Auto) 38.9 (19.3-51.7) % [place] % (Auto) 10.3 (4.7-12.5) % Eos % (Auto) 2.1 (0.7-5.8) Baso % (Auto) 0.4 (0.1-1.2) % Neut # (Auto) 2.35 (1.56-6.13) K/mm3 Lymph # (Auto) 1.89 (1.18-3.74) K/mm3 [place] # (Auto) 0.50 H (0.24-0.36) K/mm3 Eos # (Auto) 0.10 (0.04-0.36) K/mm3 Baso # (Auto) 0.02 (0.01-0.08) K/mm3 Sodium 137 (136-145) mEq/L Potassium 4.0 (3.5-5.1) mEq/L Chloride 102 (98-107) mEq/L Carbon Dioxide 30 (21-32) mEq/L Anion Gap 9.0 (5-15) BUN 11 (7-18) mg/dL Creatinine 0.7 (0.55-1.02) mg/dL Est Cr Clr Drug Dosing 60.84 mL/min Estimated GFR (MDRD) > 60 (>60) mL/min BUN/Creatinine Ratio 15.7 (14-18) Glucose 89 (80-115) mg/dL Calcium 8.5 (8.5-10.1) mg/dL Magnesium 1.9 (1.8-2.4) mg/dl Total Bilirubin 0.4 (0.2-1.0) mg/dL AST 67 H (15-37) U/L ALT 45 (14-59) U/L Alkaline Phosphatase 136 H (46-116) U/L Total Protein 5.5 L (6.4-8.2) g/dl Albumin 2.5 L (3.4-5.0) g/dl Globulin 3.0 gm/dL Albumin/Globulin Ratio 0.8 L (1-2) Med Orders - Current: Current Medications Aspirin (Ecotrin) 325 mg PO BID [facility] Bisacodyl (Dulcolax) 5 mg PO DAILY PRN PRN Reason: Constipation Cholecalciferol (Vitamin D3) 5,000 unit PO DAILY [facility] Last Admin: 12/16/19 08:07 Dose: 5,000 unit Cyclobenzaprine HCl (Flexeril) 10 mg PO TID PRN PRN Reason: Spasms Last Admin: 12/16/19 20:44 Dose: 10 mg Docusate Sodium (Colace) 100 mg PO BID [facility] Last Admin: 12/16/19 20:43 Dose: 100 mg Famotidine (Pepcid) 20 mg PO Q12H [facility] Last Admin: 12/16/19 20:43 Dose: 20 mg Magnesium Hydroxide (Milk Of Magnesia) 30 ml PO BID PRN PRN Reason: Constipation Magnesium Oxide (Magnesium Oxide) 800 mg PO DAILY [facility] Morphine Sulfate (Morphine) 2 mg IVPUSH Q2H PRN PRN Reason: Breakthrough Pain Last Admin: 12/16/19 00:01 Dose: 2 mg Multivitamins (Thera) 1 each PO DAILY [facility] Last Admin: 12/16/19 08:07 Dose: 1 each Naloxone HCl (Narcan) 0.1 mg IVPUSH Q5M PRN PRN Reason: Oversedation Ondansetron HCl (Zofran) 4 mg IVPUSH Q6H PRN PRN Reason: Nausea/Vomiting Last Admin: 12/15/19 10:14 Dose: 4 mg Oxycodone HCl (Oxycodone) 5 - 10 mg PO Q4H PRN PRN Reason: Pain Last Admin: 12/16/19 20:45 Dose: 10 mg Saccharomyces Boulardii (Florastor) 250 mg PO DAILY [facility] Last Admin: 12/16/19 08:07 Dose: 250 mg Senna (Senna) 8.6 mg PO BID PRN PRN Reason: Constipation Last Admin: 12/16/19 08:07 Dose: 8.6 mg Vitamin B Complex/Vitamin C (Super B With Vitamin C) 1 cap PO DAILY [facility] Last Admin: 12/16/19 08:07 Dose: 1 cap Discontinued Medications Acetaminophen (Tylenol) 975 mg PO ONETIME [facility] Stop: 12/14/19 12:00 Last Admin: 12/14/19 06:23 Dose: 975 mg Aspirin (Ecotrin) 325 mg PO BID [facility] Aspirin (Ecotrin) 325 mg PO BID [facility] Bupivacaine HCl (Sensorcaine-Mpf 0.25%) Confirm Administered Dose 30 ml .ROUTE .STK-MED ONE Stop: 12/14/19 06:16 Last Admin: 12/14/19 08:34 Dose: 30 ml Cefazolin Sodium (Ancef) Confirm Administered Dose 2 gm .ROUTE .ST-MED ONE Stop: 12/14/19 06:16 Last Admin: 12/14/19 08:31 Dose: 2 gm Cefazolin Sodium (Ancef) Confirm Administered Dose 2 gm .ROUTE .[facility]-MED ONE Stop: 12/14/19 06:59 Morphine Sulfate 8 mg/Epinephrine HCl 0.3 mg/Cefuroxime Sodium 750 mg/Ketorolac Tromethamine 30 mg/Sodium Chloride 27.9 ml 0 mg .XX ASDIRECTED PRN PRN Reason: Other Diltiazem HCl (Cardizem) 10 mg IVPUSH ONETIME STA Stop: 12/14/19 11:58 Last Admin: 12/14/19 12:17 Dose: 10 mg Diltiazem HCl (Cardizem) 15 mg IVPUSH ONETIME STA Stop: 12/14/19 12:22 Last Admin: 12/14/19 12:26 Dose: 15 mg Diltiazem HCl (Cardizem) 20 mg IVPUSH ONETIME ONE Stop: 12/14/19 13:09 Last Admin: 12/14/19 16:48 Dose: Not Given Diphenhydramine HCl (Benadryl) 25 mg IVPUSH Q6H PRN PRN Reason: itching Stop: 12/14/19 12:00 Enoxaparin Sodium (Lovenox) 60 mg SUBCUT BID [facility] Last Admin: 12/16/19 08:08 Dose: 60 mg Ephedrine Sulfate (Ephedrine In Ns) Confirm Administered Dose 50 mg .ROUTE .ST- MED ONE Stop: 12/14/19 07:42 Ephedrine Sulfate (Ephedrine Sulfate) 5 mg IVPUSH ASDIRECTED PRN PRN Reason: Hypotension Stop: 12/14/19 12:00 Famotidine (Pepcid) 20 mg PO Q12H [facility] Last Admin: 12/14/19 13:40 Dose: Not Given Fentanyl (Sublimaze) Confirm Administered Dose 100 mcg .ROUTE .STK-MED ONE Stop: 12/14/19 06:59 Fentanyl (Sublimaze) 50 mcg IVPUSH Q5M PRN PRN Reason: pain Stop: 12/14/19 12:00 Hydromorphone HCl (Dilaudid) 0.5 mg IVPUSH Q15M PRN PRN Reason: Pain (severe 7-10) Stop: 12/14/19 12:00 Lactated Ringer's (Ringers, Lactated) 1,000 mls @ 125 mls/hr IV ASDIRECTED [facility] Last Admin: 12/14/19 06:41 Dose: 125 mls/hr Cefazolin Sodium/Dextrose 2 gm (/ Premix) 50 mls @ 100 mls/hr IV Q8H [facility] Stop: 12/14/19 23:14 Last Admin: 12/14/19 13:30 Dose: Not Given Lidocaine HCl (Xylocaine-Mpf 1%) Confirm Administered Dose 4 mls @ as directed .ROUTE .STK-MED ONE Stop: 12/14/19 06:51 Lactated Ringer's (Ringers, Lactated) Confirm Administered Dose 1,000 mls @ as directed .ROUTE .STK-MED ONE Stop: 12/14/19 06:59 Cefazolin Sodium/Dextrose 2 gm (/ Premix) 50 mls @ 100 mls/hr IV Q8H [facility] Stop: 12/15/19 07:29 Last Admin: 12/15/19 06:04 Dose: 100 mls/hr Lactated Ringer's (Ringers, Lactated) Confirm Administered Dose 1,000 mls @ as directed .ROUTE .STK-MED ONE Stop: 12/14/19 08:43 Diltiazem HCl 125 mg/ Sodium (Chloride) 125 mls @ 5 mls/hr IV TITRATE [facility]; Protocol Diltiazem HCl 125 mg/ Sodium (Chloride) 125 mls @ 5 mls/hr IV TITRATE LORI; Protocol Lactated Ringer's (Ringers, Lactated) 1,000 mls @ 999 mls/min IV .BOLUS ONE Stop: 12/14/19 13:06 Last Admin: 12/14/19 13:30 Dose: Not Given Lactated Ringer's (Ringers, Lactated) 500 mls @ 999 mls/min IV .BOLUS ONE Stop: 12/14/19 13:08 Last Admin: 12/14/19 16:12 Dose: 999 mls/min Lactated Ringer's (Ringers, Lactated) 1,000 mls @ 100 mls/hr IV ASDIRECTED [facility] Last Admin: 12/15/19 22:52 Dose: 100 mls/hr Magnesium Sulfate 2 gm/ Premix 50 mls @ 25 mls/hr IV Q1H [facility] Stop: 12/14/19 18:29 Last Admin: 12/14/19 17:37 Dose: 25 mls/hr Magnesium Sulfate 4 gm/ Premix 100 mls @ 25 mls/hr IV ONETIME ONE Stop: 12/14/19 22:29 Last Admin: 12/14/19 19:37 Dose: 25 mls/hr Magnesium Sulfate 2 gm/ Premix 50 mls @ 25 mls/hr IV ONETIME ONE Stop: 12/16/19 11:29 Last Admin: 12/16/19 09:33 Dose: 25 mls/hr Iodine (Iodine 2% Mild Tincture) Confirm Administered Dose 30 ml .ROUTE .STK- MED ONE Stop: 12/14/19 06:16 Last Admin: 12/14/19 08:33 Dose: 18 ml Ketorolac Tromethamine (Toradol) 15 mg IVPUSH Q6H PRN PRN Reason: Pain Last Admin: 12/15/19 02:18 Dose: 15 mg Ketorolac Tromethamine (Toradol) 15 mg IVPUSH ONETIME ONE Stop: 12/15/19 11:31 Last Admin: 12/15/19 11:39 Dose: 15 mg Lidocaine/Sodium Bicarbonate (Buffered Lidocaine 1% In Ns 8.4%) 0.25 ml IDERM ONETIME PRN PRN Reason: Prior to IV Start Last Admin: 12/14/19 06:41 Dose: 0.25 ml Magnesium Oxide (Magnesium Oxide) 800 mg PO ONETIME ONE Stop: 12/16/19 10:16 Last Admin: 12/16/19 10:20 Dose: 800 mg Midazolam HCl (Versed 1 Mg/Ml) Confirm Administered Dose 2 mg .ROUTE .STK-MED ONE Stop: 12/14/19 06:59 Non-Formulary Medication (Potassium Gluconate [Potassium Gluconate]) 500 mg PO DAILY [facility] Non-Formulary Medication (Ubidecarenone) 100 mg PO DAILY [facility] Non-Formulary Medication (Vitamin A) 10,000 units PO DAILY [facility] Ondansetron HCl (Zofran) Confirm Administered Dose 4 mg .ROUTE .STK-MED ONE Stop: 12/14/19 07:36 Ondansetron HCl (Zofran) 4 mg IVPUSH ONETIME PRN PRN Reason: Nausea/Vomiting Stop: 12/14/19 12:00 Oxycodone HCl (Oxycontin) 10 mg PO ONETIME [facility] Stop: 12/14/19 12:00 Last Admin: 12/14/19 06:23 Dose: 10 mg Oxycodone HCl (Oxycodone) 5 mg PO ONETIME ONE Stop: 12/15/19 11:31 Last Admin: 12/15/19 11:43 Dose: 5 mg Phenylephrine HCl (Phenylephrine In Ns 100 Mcg/Ml) Confirm Administered Dose 1 mg .ROUTE .STK-MED ONE Stop: 12/14/19 07:47 Pregabalin (Lyrica) 50 mg PO ONETIME [facility] Stop: 12/14/19 12:00 Last Admin: 12/14/19 06:23 Dose: 50 mg Propofol (Diprivan 20 Ml) Confirm Administered Dose 600 mg .ROUTE .STK-MED ONE Stop: 12/14/19 06:51 Sodium Chloride (Saline Flush) 10 ml FLUSH ASDIRECTED PRN PRN Reason: Keep Vein Open Tranexamic Acid (Cyklokapron) Confirm Administered Dose 1,000 mg .ROUTE .STK- MED ONE Stop: 12/14/19 06:16 Last Admin: 12/14/19 08:38 Dose: 1,000 mg Vancomycin HCl (Vancomycin) Confirm Administered Dose 1 gm .ROUTE .STK-MED ONE Stop: 12/14/19 06:16 Last Admin: 12/14/19 08:38 Dose: 1 gm Warfarin Sodium (Pharmacy To Dose - Warfarin) 1 dose .XX ASDIRECTED PRN PRN Reason: RX TO DOSE WARFARIN Warfarin Sodium (Coumadin) 5 mg PO QPM [facility] Stop: 12/15/19 18:01 Last Admin: 12/15/19 17:13 Dose: 5 mg Warfarin Sodium (Coumadin) 5 mg PO QPM [facility] Stop: 12/16/19 18:01 - Exam Quality Assessment: DVT Prophylaxis. No: Supplemental Oxygen, Urine Catheter General: Alert, Oriented, Cooperative, No Acute Distress HEENT: Pupils Equal, Pupils Reactive, Mucous Membr. Moist/Christopher Neck: Supple, Trachea Midline Lungs: Clear to Auscultation, Normal Respiratory Effort Cardiovascular: Regular Rate. No: Regular Rhythm (mostly, occasional PVC ) GI/Abdominal Exam: Normal Bowel Sounds, Soft, Non-Tender, No Organomegaly, No Distention (Female) Exam: Deferred Back Exam: Normal Inspection, Full Range of Motion Extremities: No Pedal Edema, Normal Capillary Refill, Leg Pain, Limited Range of Motion, Other (Bandage in place on left leg. Cooling pack in place. ) Skin: Warm, Dry, Intact Wound/Incisions: Dressing Dry and Intact Neurological: No New Focal Deficit Psy/Mental Status: Alert, Normal Affect, Normal Mood Sepsis Event Note - Evaluation Sepsis Screening Result: No Definite Risk - Focused Exam Vital Signs: Vital Signs Temp Resp BP Pulse Ox 12/17/19 04:54 98.5 F 16 108/56 L 96 12/17/19 04:49 97 12/17/19 00:05 99 F 12/16/19 22:00 100 F 12/16/19 20:30 101.5 F H 16 102/51 L 94 L 12/16/19 20:10 97 Date Exam was Performed: 12/17/19 Time Exam was Performed: 10:53 Consult PN Assessment/Plan POD#: 3 Procedures: Procedures ASSAY OF CHROMIUM (06/10/19) BLOOD TYPING SEROLOGIC ABO (09/30/16) BLOOD TYPING SEROLOGIC RH(D) (09/30/16) BONE IMAGING 3 PHASE (05/06/17) CMBN ANT PST COLPRHY (10/01/16) COMP SCREEN MAMMOGRAM ADD-ON (07/20/14) COMPLETE CBC W/AUTO DIFF WBC (09/30/16) COMPREHEN METABOLIC PANEL (09/30/16) EXC H-F-NK-SP B9+BEATRIZ 1.1-2 (10/01/16) HEAVY METAL QUANT EACH ARMANDO (03/20/17) HYDRATE IV INFUSION ADD-ON (10/01/16) INSERT TEMP BLADDER CATH (10/01/16) LAP ING HERNIA REPAIR INIT (10/01/16) RBC ANTIBODY SCREEN (09/30/16) REPAIR BLADDER DEFECT (10/01/16) ROUTINE VENIPUNCTURE (03/20/17) SMEAR WET MOUNT SALINE/INK (10/23/16) THER/PROPH/DIAG INJ IV PUSH (10/01/16) TISSUE EXAM BY PATHOLOGIST (10/01/16) TISSUE EXAM BY PATHOLOGIST (10/01/16) TRICHOMONAS ASSAY W/OPTIC (10/23/16) TX/PRO/DX INJ SAME DRUG INCLUSION TEACHER (10/01/16) URINALYSIS AUTO W/O SCOPE (09/30/16) VAG HYST INCLUDING T/O (10/01/16) (1) Status post hip surgery SNOMED Code(s): 914692539, 442507971 Code(s): Z98.890 - OTHER SPECIFIED POSTPROCEDURAL STATES Priority: High Current Visit: Yes (2) Osteoarthritis SNOMED Code(s): 314102044 Code(s): M19.90 - UNSPECIFIED OSTEOARTHRITIS, UNSPECIFIED SITE Priority: High Current Visit: Yes Qualifiers: Osteoarthritis location: hip Osteoarthritis type: primary Laterality: right Qualified Code(s): M16.11 - Unilateral primary osteoarthritis, right hip (3) Impaired vision SNOMED Code(s): 337946754 Code(s): H54.7 - UNSPECIFIED VISUAL LOSS Priority: Low Current Visit: No (4) Cough SNOMED Code(s): 08211530 Code(s): R05 - COUGH Priority: Low Current Visit: No (5) Suspected sleep apnea SNOMED Code(s): 26163404 Code(s): R29.818 - OTHER SYMPTOMS AND SIGNS INVOLVING THE NERVOUS SYSTEM Priority: Medium Current Visit: No (6) Uterine prolapse SNOMED Code(s): 03298173 Code(s): N81.4 - UTEROVAGINAL PROLAPSE, UNSPECIFIED Priority: Low Current Visit: No (7) Cystocele SNOMED Code(s): 708233627 Code(s): IDJ8040 - Priority: Low Current Visit: No (8) Osteoporosis SNOMED Code(s): 12117342 Code(s): M81.0 - AGE-RELATED OSTEOPOROSIS W/O CURRENT PATHOLOGICAL FRACTURE Priority: Medium Current Visit: Yes Qualifiers: Osteoporosis type: unspecified Presence of current pathological fracture: unspecified Qualified Code(s): M81.0 - Age-related osteoporosis without current pathological fracture (9) Migraines SNOMED Code(s): 07208418 Code(s): G43.909 - MIGRAINE, UNSP, NOT INTRACTABLE, WITHOUT STATUS MIGRAINOSUS Priority: Low Current Visit: No Qualifiers: Migraine type: unspecified Status migrainosus presence: without status migrainosus Intractability: not intractable Qualified Code(s): G43.909 - Migraine, unspecified, not intractable, without status migrainosus (10) Vertigo SNOMED Code(s): 789311918 Code(s): R42 - DIZZINESS AND GIDDINESS Priority: Low Current Visit: No (11) Anxiety SNOMED Code(s): 46509859 Code(s): F41.9 - ANXIETY DISORDER, UNSPECIFIED Priority: Low Current Visit: No (12) Depression SNOMED Code(s): 34592119 Code(s): F32.9 - MAJOR DEPRESSIVE DISORDER, SINGLE EPISODE, UNSPECIFIED Priority: Low Current Visit: No Qualifiers: Depression Type: other depression Qualified Code(s): F32.89 - Other specified depressive episodes (13) Dizziness SNOMED Code(s): 335428384, 169608974 Code(s): R42 - DIZZINESS AND GIDDINESS Priority: Low Current Visit: No (14) Thyroid nodule SNOMED Code(s): 124138105 Code(s): E04.1 - NONTOXIC SINGLE THYROID NODULE Priority: Low Current Visit: No (15) Seborrheic keratoses SNOMED Code(s): 317124678 Code(s): L82.1 - OTHER SEBORRHEIC KERATOSIS Priority: Low Current Visit: No (16) History of tobacco use SNOMED Code(s): 333985322 Code(s): Z87.891 - PERSONAL HISTORY OF NICOTINE DEPENDENCE Priority: Medium Current Visit: No (17) Abnormal chest x-ray SNOMED Code(s): 202090895, 215821933 Code(s): R93.89 - ABNORMAL FINDINGS ON DX IMAGING OF OTH BODY STRUCTURES Priority: Medium Current Visit: No (18) Elevated LFTs SNOMED Code(s): 337757794, 436233568 Code(s): R94.5 - ABNORMAL RESULTS OF LIVER FUNCTION STUDIES Priority: Medium Current Visit: No (19) Hypercalcemia SNOMED Code(s): 47856540 Code(s): E83.52 - HYPERCALCEMIA Priority: Medium Current Visit: No (20) Lymphadenopathy SNOMED Code(s): 73546400 Code(s): R59.1 - GENERALIZED ENLARGED LYMPH NODES Priority: Medium Current Visit: No (21) Right inguinal hernia SNOMED Code(s): 916010116 Code(s): K40.90 - UNIL INGUINAL HERNIA, W/O OBST OR GANGR, NOT SPCF RECUR Priority: Medium Current Visit: No (22) New onset atrial fibrillation SNOMED Code(s): 94292287 Code(s): I48.91 - UNSPECIFIED ATRIAL FIBRILLATION Priority: High Current Visit: Yes (23) Atrial fibrillation with rapid ventricular response SNOMED Code(s): 987230625663218 Code(s): I48.91 - UNSPECIFIED ATRIAL FIBRILLATION Priority: High Current Visit: Yes (24) Hypotension SNOMED Code(s): 99471441 Code(s): I95.9 - HYPOTENSION, UNSPECIFIED Priority: High Current Visit: Yes Qualifiers: Hypotension type: unspecified hypotension type Qualified Code(s): I95.9 - Hypotension, unspecified (25) Hypomagnesemia SNOMED Code(s): 860002657 Code(s): E83.42 - HYPOMAGNESEMIA Priority: High Current Visit: Yes (26) Postoperative anemia SNOMED Code(s): 208817536, 953026936 Code(s): D64.9 - ANEMIA, UNSPECIFIED Priority: High Current Visit: Yes Problem List Initiated/Reviewed/Updated: Yes My Orders Last 24 Hours: My Active Orders 12/17/19 09:00 Aspirin [Ecotrin] 325 mg PO BID Magnesium Oxide 800 mg PO DAILY Plan: I/P: Acute: 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 - post-operative day 3 -Pain management per primary care team -PT/OT -IS/RT -Monitor oxygen saturation -Titrate oxygen as needed -Home medications reviewed -Vital signs stable -Monitor labs -Pre-operative Hgb was 13.1; Now 9.7-->8.8-->8.9-->8.7 -Re-check CBC with results to PCP on 12/21/19 -Pre-operative GFR was 69; Now >60 -Pre-operative AST was 38; Now 26-->29 -Pre-operative calcium was 10.9; Now 8.4-->8.5 -Pre-operative EKG showed a sinus rhythm with LAD Osteoarthritis of left hip -Pain management per primary care team A-fib with RVR, Resolved -New onset -Noted post-surgically -12-lead shows A-fib RVR with rate of 170; Repeat shows sinus rhythm -Denies symptoms -Cardizem IVP given, converted with one dose -Converted prior to Cardizem drip being initiated -Telemetry -Upgraded to ICU status -> downgraded to M/S/P with telemetry -[id number] score of 1 (0.6% stroke risk per year.) -Echo obtained -Will D/C lovenox and warfarin - Start BID ASA -No A-fib since initial episode. Hypotension, improved and stable -Acute on chronic -Patient reports she is normally at lower end of normal for BP -As low as 82/56; Now 108/49 -Worsened by above -IV fluids given with good response Hypomagnesemia, resolved -Magnesium 1.4-->2.5-->1.8-->1.9 -Supplemented Chronic: Impaired vision cough suspected undiagnosed sleep apnea right inguinal hernia tubular adenoma renal calculus uterine prolapse cystocele osteoarthritis osteoporosis migraines vertigo anxiety depression thyroid nodule seborrheic keratosis dizziness lymphadenopathy elevated LFTs hypercalcemia abnormal chest x-ray with hyperinflation and questionable subtle evolving infiltrate Plan: Upgrade to ICU status-> downgraded to floor status CM for discharge planning GI prophylaxis Home medications as indicated Other orders as listed above Routine AM labs She is a full code. Her PCP is Dr. Harris From a hospitalist standpoint Dilcia has been doing well. She converted to Sinus arrhythmia with occasional PVC. She has not had any more episodes of A-fib. Past history and risks were reviewed and it was determined patient would be appropriate for BID ASA therapy on discharge. Lovenox and warfarin were subsequently stopped. Risks and benefits were discussed with patient. Pain has been controlled and she has been up working with therapies. She has urinated and is off of oxygen. She has been utilizing her IS. She did have a BM. Her magnesium was noted to be low and was supplemented. Her home magnesium supplementation was resumed. Labs and vital signs have remained stable. Her Hgb did drop after discharge however this has remained stable. Discussed results and plan with primary team. Order placed for repeat CBC, CMP, and magnesium on or around 12/21/[address] Harris. Recommend follow-up with PCP early next week. We are also recommending an outpatient sleep study. She is cleared for discharge pending primary team and PT/OT agreement. Thank you for allowing us to participate in the care of this patient!!
[2019-12-17] MEDS: Multivitamins,Therapeutic Tab PO SCH (08:08)
[2019-12-17] MEDS: Vitamin B Complex With Vitamin C Cap PO SCH (08:08)
[2019-12-17] MEDS: Cholecalciferol (Vitamin D3) 5,000 UNIT Tab PO SCH (08:08)
[2019-12-17] MEDS: Docusate Sodium 100 MG Cap PO SCH (08:08)
[2019-12-17] MEDS: oxyCODONE 5 MG Tab PO PRN (08:09)
[2019-12-17] MEDS: Saccharomyces Boulardii (Probiotic) 250 MG Cap PO SCH (08:09)
[2019-12-17] MEDS: Famotidine 20 MG Tab PO SCH (08:09)
[2019-12-17] MEDS ORDERED: Aspirin 325 MG Tab.EC PO SCH (09:00)
[2019-12-17] MEDS ORDERED: Magnesium Oxide 400 MG Tab PO SCH (09:00)
[2019-12-17 10:50] VITALS: BP 122/59
[2019-12-17] MEDS: Cyclobenzaprine 10 MG Tab PO PRN (11:03)
[2019-12-17] MEDS: Diltiazem 50 MG/10 ML SDV IVPUSH STA (13:17)
--- NOTE | 2019-12-17 15:05 | PCM.SURGPN ---
- General Info Date of Service: 12/17/19 POD#: 3 Functional Status: Reports: Pain Controlled, Tolerating Diet, Ambulating, Urinating, Incentive Spirometry, Other (The pt states she is doing well.) - Patient Data Vitals - Most Recent: Last Vital Signs Temp 99.1 F 12/17/19 10:48 Pulse 69 12/14/19 15:00 Resp 16 12/17/19 10:48 BP 122/59 L 12/17/19 10:48 Pulse Ox 98 12/17/19 10:48 Weight - Most Recent: 136 lb I&O - Last 24 Hours: Intake & Output 12/17/19 12/17/19 12/17/19 06:59 14:59 22:59 Intake Total 800 300 Output Total 1200 Balance -400 300 Lab Results Last 24 Hrs: Laboratory Results - last 24 hr 12/17/19 12/17/19 Range/Units 05:07 05:07 WBC 4.86 (3.98-10.04) K/mm3 RBC 2.68 L (3.98-5.22) M/mm3 Hgb 8.7 L (11.2-15.7) gm/dl Hct 26.0 L (34.1-44.9) % MCV 97.0 H D (79.4-94.8) fl MCH 32.5 H (25.6-32.2) pg MCHC 33.5 (32.2-35.5) g/dl RDW Std Deviation 44.9 (36.4-46.3) fL Plt Count 276 (182-369) K/mm3 MPV 8.3 L (9.4-12.3) fl Neut % (Auto) 48.3 (34.0-71.1) % Lymph % (Auto) 38.9 (19.3-51.7) % Dent % (Auto) 10.3 (4.7-12.5) % Eos % (Auto) 2.1 (0.7-5.8) Baso % (Auto) 0.4 (0.1-1.2) % Neut # (Auto) 2.35 (1.56-6.13) K/mm3 Lymph # (Auto) 1.89 (1.18-3.74) K/mm3 Dent # (Auto) 0.50 H (0.24-0.36) K/mm3 Eos # (Auto) 0.10 (0.04-0.36) K/mm3 Baso # (Auto) 0.02 (0.01-0.08) K/mm3 Sodium 137 (136-145) mEq/L Potassium 4.0 (3.5-5.1) mEq/L Chloride 102 (98-107) mEq/L Carbon Dioxide 30 (21-32) mEq/L Anion Gap 9.0 (5-15) BUN 11 (7-18) mg/dL Creatinine 0.7 (0.55-1.02) mg/dL Est Cr Clr Drug Dosing 60.84 mL/min Estimated GFR (MDRD) > 60 (>60) mL/min BUN/Creatinine Ratio 15.7 (14-18) Glucose 89 (80-115) mg/dL Calcium 8.5 (8.5-10.1) mg/dL Magnesium 1.9 (1.8-2.4) mg/dl Total Bilirubin 0.4 (0.2-1.0) mg/dL AST 67 H (15-37) U/L ALT 45 (14-59) U/L Alkaline Phosphatase 136 H (46-116) U/L Total Protein 5.5 L (6.4-8.2) g/dl Albumin 2.5 L (3.4-5.0) g/dl Globulin 3.0 gm/dL Albumin/Globulin Ratio 0.8 L (1-2) Med Orders - Current: Current Medications Discontinued Medications Acetaminophen (Tylenol) 975 mg PO ONETIME [facility] Stop: 12/14/19 12:00 Last Admin: 12/14/19 06:23 Dose: 975 mg Aspirin (Ecotrin) 325 mg PO BID [facility] Aspirin (Ecotrin) 325 mg PO BID [facility] Aspirin (Ecotrin) 325 mg PO BID [facility] Last Admin: 12/17/19 08:08 Dose: 325 mg Bisacodyl (Dulcolax) 5 mg PO DAILY PRN PRN Reason: Constipation Last Admin: 12/17/19 08:08 Dose: 5 mg Bupivacaine HCl (Sensorcaine-Mpf 0.25%) Confirm Administered Dose 30 ml .ROUTE .STK-MED ONE Stop: 12/14/19 06:16 Last Admin: 12/14/19 08:34 Dose: 30 ml Cefazolin Sodium (Ancef) Confirm Administered Dose 2 gm .ROUTE .[facility]-MED ONE Stop: 12/14/19 06:16 Last Admin: 12/14/19 08:31 Dose: 2 gm Cefazolin Sodium (Ancef) Confirm Administered Dose 2 gm .ROUTE .[facility]-MED ONE Stop: 12/14/19 06:59 Cholecalciferol (Vitamin D3) 5,000 unit PO DAILY [facility] Last Admin: 12/17/19 08:08 Dose: 5,000 unit Morphine Sulfate 8 mg/Epinephrine HCl 0.3 mg/Cefuroxime Sodium 750 mg/Ketorolac Tromethamine 30 mg/Sodium Chloride 27.9 ml 0 mg .XX ASDIRECTED PRN PRN Reason: Other Cyclobenzaprine HCl (Flexeril) 10 mg PO TID PRN PRN Reason: Spasms Last Admin: 12/17/19 11:03 Dose: 10 mg Diltiazem HCl (Cardizem) 10 mg IVPUSH ONETIME STA Stop: 12/14/19 11:58 Last Admin: 12/17/19 13:17 Dose: Not Given Diltiazem HCl (Cardizem) 15 mg IVPUSH ONETIME STA Stop: 12/14/19 12:22 Last Admin: 12/14/19 12:26 Dose: 15 mg Diltiazem HCl (Cardizem) 20 mg IVPUSH ONETIME ONE Stop: 12/14/19 13:09 Last Admin: 12/14/19 16:48 Dose: Not Given Diphenhydramine HCl (Benadryl) 25 mg IVPUSH Q6H PRN PRN Reason: itching Stop: 12/14/19 12:00 Docusate Sodium (Colace) 100 mg PO BID [facility] Last Admin: 12/17/19 08:08 Dose: 100 mg Enoxaparin Sodium (Lovenox) 60 mg SUBCUT BID [facility] Last Admin: 12/16/19 08:08 Dose: 60 mg Ephedrine Sulfate (Ephedrine In Ns) Confirm Administered Dose 50 mg .ROUTE .[facility]- MED ONE Stop: 12/14/19 07:42 Ephedrine Sulfate (Ephedrine Sulfate) 5 mg IVPUSH ASDIRECTED PRN PRN Reason: Hypotension Stop: 12/14/19 12:00 Famotidine (Pepcid) 20 mg PO Q12H [facility] Last Admin: 12/14/19 13:40 Dose: Not Given Famotidine (Pepcid) 20 mg PO Q12H [facility] Last Admin: 12/17/19 08:09 Dose: 20 mg Fentanyl (Sublimaze) Confirm Administered Dose 100 mcg .ROUTE .STK-MED ONE Stop: 12/14/19 06:59 Fentanyl (Sublimaze) 50 mcg IVPUSH Q5M PRN PRN Reason: pain Stop: 12/14/19 12:00 Hydromorphone HCl (Dilaudid) 0.5 mg IVPUSH Q15M PRN PRN Reason: Pain (severe 7-10) Stop: 12/14/19 12:00 Lactated Ringer's (Ringers, Lactated) 1,000 mls @ 125 mls/hr IV ASDIRECTED [facility] Last Admin: 12/14/19 06:41 Dose: 125 mls/hr Cefazolin Sodium/Dextrose 2 gm (/ Premix) 50 mls @ 100 mls/hr IV Q8H [facility] Stop: 12/14/19 23:14 Last Admin: 12/14/19 13:30 Dose: Not Given Lidocaine HCl (Xylocaine-Mpf 1%) Confirm Administered Dose 4 mls @ as directed .ROUTE .STK-MED ONE Stop: 12/14/19 06:51 Lactated Ringer's (Ringers, Lactated) Confirm Administered Dose 1,000 mls @ as directed .ROUTE .STK-MED ONE Stop: 12/14/19 06:59 Cefazolin Sodium/Dextrose 2 gm (/ Premix) 50 mls @ 100 mls/hr IV Q8H [facility] Stop: 12/15/19 07:29 Last Admin: 12/15/19 06:04 Dose: 100 mls/hr Lactated Ringer's (Ringers, Lactated) Confirm Administered Dose 1,000 mls @ as directed .ROUTE .STK-MED ONE Stop: 12/14/19 08:43 Diltiazem HCl 125 mg/ Sodium (Chloride) 125 mls @ 5 mls/hr IV TITRATE LORI; Protocol Diltiazem HCl 125 mg/ Sodium (Chloride) 125 mls @ 5 mls/hr IV TITRATE LORI; Protocol Lactated Ringer's (Ringers, Lactated) 1,000 mls @ 999 mls/min IV .BOLUS ONE Stop: 12/14/19 13:06 Last Admin: 12/14/19 13:30 Dose: Not Given Lactated Ringer's (Ringers, Lactated) 500 mls @ 999 mls/min IV .BOLUS ONE Stop: 12/14/19 13:08 Last Admin: 12/14/19 16:12 Dose: 999 mls/min Lactated Ringer's (Ringers, Lactated) 1,000 mls @ 100 mls/hr IV ASDIRECTED [facility] Last Admin: 12/15/19 22:52 Dose: 100 mls/hr Magnesium Sulfate 2 gm/ Premix 50 mls @ 25 mls/hr IV Q1H [facility] Stop: 12/14/19 18:29 Last Admin: 12/14/19 17:37 Dose: 25 mls/hr Magnesium Sulfate 4 gm/ Premix 100 mls @ 25 mls/hr IV ONETIME ONE Stop: 12/14/19 22:29 Last Admin: 12/14/19 19:37 Dose: 25 mls/hr Magnesium Sulfate 2 gm/ Premix 50 mls @ 25 mls/hr IV ONETIME ONE Stop: 12/16/19 11:29 Last Admin: 12/16/19 09:33 Dose: 25 mls/hr Iodine (Iodine 2% Mild Tincture) Confirm Administered Dose 30 ml .ROUTE .STK- MED ONE Stop: 12/14/19 06:16 Last Admin: 12/14/19 08:33 Dose: 18 ml Ketorolac Tromethamine (Toradol) 15 mg IVPUSH Q6H PRN PRN Reason: Pain Last Admin: 12/15/19 02:18 Dose: 15 mg Ketorolac Tromethamine (Toradol) 15 mg IVPUSH ONETIME ONE Stop: 12/15/19 11:31 Last Admin: 12/15/19 11:39 Dose: 15 mg Lidocaine/Sodium Bicarbonate (Buffered Lidocaine 1% In Ns 8.4%) 0.25 ml IDERM ONETIME PRN PRN Reason: Prior to IV Start Last Admin: 12/14/19 06:41 Dose: 0.25 ml Magnesium Hydroxide (Milk Of Magnesia) 30 ml PO BID PRN PRN Reason: Constipation Magnesium Oxide (Magnesium Oxide) 800 mg PO DAILY [facility] Last Admin: 12/17/19 08:08 Dose: 800 mg Magnesium Oxide (Magnesium Oxide) 800 mg PO ONETIME ONE Stop: 12/16/19 10:16 Last Admin: 12/16/19 10:20 Dose: 800 mg Midazolam HCl (Versed 1 Mg/Ml) Confirm Administered Dose 2 mg .ROUTE .STK-MED ONE Stop: 12/14/19 06:59 Morphine Sulfate (Morphine) 2 mg IVPUSH Q2H PRN PRN Reason: Breakthrough Pain Last Admin: 12/16/19 00:01 Dose: 2 mg Multivitamins (Thera) 1 each PO DAILY [facility] Last Admin: 12/17/19 08:08 Dose: 1 each Naloxone HCl (Narcan) 0.1 mg IVPUSH Q5M PRN PRN Reason: Oversedation Non-Formulary Medication (Potassium Gluconate [Potassium Gluconate]) 500 mg PO DAILY [facility] Non-Formulary Medication (Ubidecarenone) 100 mg PO DAILY [facility] Non-Formulary Medication (Vitamin A) 10,000 units PO DAILY [facility] Ondansetron HCl (Zofran) 4 mg IVPUSH Q6H PRN PRN Reason: Nausea/Vomiting Last Admin: 12/15/19 10:14 Dose: 4 mg Ondansetron HCl (Zofran) Confirm Administered Dose 4 mg .ROUTE .STK-MED ONE Stop: 12/14/19 07:36 Ondansetron HCl (Zofran) 4 mg IVPUSH ONETIME PRN PRN Reason: Nausea/Vomiting Stop: 12/14/19 12:00 Oxycodone HCl (Oxycontin) 10 mg PO ONETIME [facility] Stop: 12/14/19 12:00 Last Admin: 12/14/19 06:23 Dose: 10 mg Oxycodone HCl (Oxycodone) 5 - 10 mg PO Q4H PRN PRN Reason: Pain Last Admin: 12/17/19 08:09 Dose: 10 mg Oxycodone HCl (Oxycodone) 5 mg PO ONETIME ONE Stop: 12/15/19 11:31 Last Admin: 12/15/19 11:43 Dose: 5 mg Phenylephrine HCl (Phenylephrine In Ns 100 Mcg/Ml) Confirm Administered Dose 1 mg .ROUTE .STK-MED ONE Stop: 12/14/19 07:47 Pregabalin (Lyrica) 50 mg PO ONETIME [facility] Stop: 12/14/19 12:00 Last Admin: 12/14/19 06:23 Dose: 50 mg Propofol (Diprivan 20 Ml) Confirm Administered Dose 600 mg .ROUTE .STK-MED ONE Stop: 12/14/19 06:51 Saccharomyces Boulardii (Florastor) 250 mg PO DAILY [facility] Last Admin: 12/17/19 08:09 Dose: 250 mg Senna (Senna) 8.6 mg PO BID PRN PRN Reason: Constipation Last Admin: 12/16/19 08:07 Dose: 8.6 mg Sodium Chloride (Saline Flush) 10 ml FLUSH ASDIRECTED PRN PRN Reason: Keep Vein Open Tranexamic Acid (Cyklokapron) Confirm Administered Dose 1,000 mg .ROUTE .[facility]- [facility] Stop: 12/14/19 06:16 Last Admin: 12/14/19 08:38 Dose: 1,000 mg Vancomycin HCl (Vancomycin) Confirm Administered Dose 1 gm .ROUTE .[facility]-MED ONE Stop: 12/14/19 06:16 Last Admin: 12/14/19 08:38 Dose: 1 gm Vitamin B Complex/Vitamin C (Super B With Vitamin C) 1 cap PO DAILY [facility] Last Admin: 12/17/19 08:08 Dose: 1 cap Warfarin Sodium (Pharmacy To Dose - Warfarin) 1 dose .XX ASDIRECTED PRN PRN Reason: RX TO DOSE WARFARIN Warfarin Sodium (Coumadin) 5 mg PO QPM [facility] Stop: 12/15/19 18:01 Last Admin: 12/15/19 17:13 Dose: 5 mg Warfarin Sodium (Coumadin) 5 mg PO QPM [facility] Stop: 12/16/19 18:01 - Exam Wound/Incisions: Dressing Dry and Intact General: Alert, Cooperative, No Acute Distress Lungs: Normal Respiratory Effort Extremities: Other (NVS intact for BLE. Amber's negative.) Sepsis Event Note - Evaluation Sepsis Screening Result: No Definite Risk - Focused Exam Vital Signs: Vital Signs Temp Resp BP Pulse Ox 12/17/19 10:48 99.1 F 16 122/59 L 98 12/17/19 04:54 98.5 F 16 108/56 L 96 12/17/19 04:49 97 Date Exam was Performed: 12/17/19 Time Exam was Performed: 15:03 - Problem List Review Problem List Initiated/Reviewed/Updated: Yes - My Orders Last 24 Hours: Active Orders 24 hr Category Date Time Status Ready for Discharge [RC] PER UNIT ROUTINE Care 12/17/19 09:40 Active - Assessment Assessment (Free Text/Narrative):: POD#3 - s/p left BIJAN - Plan Plan (Free Text/Narrative):: 1. Discharge to home today. The pt has been cleared by Hospitalist service. 2. Outpatient therapy. WBAT. BIJAN precautions. 3. Follow-up at outpatient Clinic next week as scheduled. The pt was evaluated by Dr. Spain today.
--- NOTE | 2019-12-18 13:50 | PCM.OPNOTE ---
- General Post-Op/Procedure Note Date of Surgery/Procedure: 12/14/19 Operative Procedure(s): revision acetabular component of left total hip with femoral head revision Pre Op Diagnosis: painful left total hip arthroplasty Post-Op Diagnosis: Same Anesthesia Technique: Local, MAC, Spinal Primary Surgeon: Roberto Carlos Spain Anesthesia Provider: Batsheva Shane Pottery Kiln Builder: Francecsa Abbott Pottery Kiln Builder: Mary Lou Pizano EBL in mLs: 400 Complications: None Condition: Good Free Text/Narrative:: 58mm cup 28+3.5 head with mdm componenet
--- NOTE | 2019-12-18 14:37 | OR ---
DATE OF OPERATION: 12/14/2019 SURGEON: Roberto Carlos Spain MD OPERATION PERFORMED: Revision acetabular component of left total hip with femoral head revision. PREOPERATIVE DIAGNOSIS: Painful left total hip arthroplasty. POSTOPERATIVE DIAGNOSIS: Painful left total hip arthroplasty. ANESTHESIA: Local MAC with spinal. ANESTHESIA PROVIDER: Batsheva Shane. ASSISTANTS: Francesca Abbott PA-C and Mary Lou Pizano LPN. ESTIMATED BLOOD LOSS: 400 mL. COMPLICATIONS: None. CONDITION: Stable. IMPLANTS: 1. [place] size 58-mm Tritanium II solid acetabular cup. 2. A 28+ 3.5 mm Matt femoral head with Coreen MDM components. DESCRIPTION OF PROCEDURE: The patient was identified in the preoperative holding area. Proper site was marked and identified by the surgeon. The patient was taken back to the operating theater where after adequate anesthesia, the patient was placed in a right lateral decubitus position. Axillary roll was placed. All bony prominences were well padded. Pegs were then placed and well padded. The patient's gluteal fold was parallel to the floor. At this time, the left hip was sterilely prepped and draped in the usual sterile fashion. OR time-out was performed. The patient received 2 g of IV Ancef. Standard posterior incision was done centered over the greater trochanter. This was taken down to the IT band and gluteal fascia which was incised along the incisional length. Charnley retractor was then placed. At this time, the short external rotators and previous capsulotomy were identified and I took down the previous healed capsule right off the posterior rim of the femur down to the components. At this time, I was able to get good visualization of it all the way from the lesser trochanter up to near the gluteus minimus making sure not to disrupt the abductors. The patient had no signs of ALVAL at this time and no metallosis. The hip was then dislocated and a bone tamp and a mallet were used to dissociate the previous metal-on- metal femoral head. This was placed on the back table. Attention was then turned to the acetabular side. The previous femoral stem was able to be brought superiorly and anteriorly to the acetabulum, so that I had very good visualization of all scar tissue as well as overgrowth was undertaken, so I could see the whole rim. I used a 56 and then a 58-mm reamer and was found to have adequate purchase with good bony bleeding bed and good anterior- posterior mcneil. At this time, a 58-mm [place] Tritanium II acetabular cup was impacted into place. It was found to have a very solid fixation, so no screws were needed. The MDM liner was then impacted into place and attention was turned to the femur. The femoral stem was found to be adequately healed. There were no signs of loosening or osteolysis around it. I then trialed the MDM components. It was found that a +3.5 had adequate anglican of leg-lengths and stable throughout range of motion. At this time, the MDM components with a 28+ 3.5 mm Matt head were constructed on the back table and then were impacted into place on the femoral head. This was then relocated. A #5 Ethibond suture was used for closure of the remaining capsule. 1 L dilute Betadine solution was irrigated through the hip along with 3 L pulse lavage irrigation with Ancef. Topical tranexamic acid and vancomycin powder were placed. A #2 barbed suture was used for closure of the IT band and gluteal fascia, 2-0 Vicryl was used subcutaneously, and Prineo was used for the skin. The patient tolerated the procedure well and sent to PACU in stable condition. Please note that for removal of the previous acetabular component once I did have visualization, I was able to use just a bone tamp and knock out the previous acetabular component with very little effort using a bone tamp and a mallet with a little to no ongrowth or ingrowth onto the back of the previous components. MMODAL /[id number]
--- NOTE | 2019-12-21 12:16 | PCM.DCSUM1 ---
Discharge Summary - Hospital Course Brief History: Dilcia is a 69 yo female who underwent revision of acetabulum and femoral head of left BIJAN with Dr. Spain on 12-14-2019. The procedure was completed under spinal anesthesia with MAC. The pt tolerated the procedure well and was admitted to the Medical-Surgical Unit. Post-operatively, the pt was noted to be in atrial fibrillation with RVR and subsequently was tranferred to the ICU. Medical management was provided by the Hospitalist service and the pt was noted to convert to sinus rhythm during Hospital stay. The pt received Ancef manny-operatively. She participated in P.T. and O.T. and progressed after POD#0. She was allowed to WBAT and used a FWW for mobility. BIJAN precautions were followed. The pt's surgical wound was dressed with a Mepilex dressing and remained clean and dry. The pt used Lovenox and then ASA post-operatively for VTE prophylaxis. The pt used TEDs and SCDs also. On POD#1, the pt's hemoglobin was 9.7. On POD#3, the pt was deemed appropriate for discharge to home. Diagnosis: Stroke: No - Discharge Data Discharge Date: 12/17/19 Discharge Disposition: Home, Self-Care 01 Condition: Good - Referral to Home Health Primary Care Physician: Torito Harris MD - Patient Summary/Data Operative Procedure(s) Performed: revision acetabular component of left total hip with femoral head revision Consults: Consultations 12/14/19 06:37 OT Evaluation and Treatment [CONS] Routine PT Evaluation and Treatment [CONS] Routine 12/14/19 06:40 Consult to Physician [CONS] Routine - Patient Instructions Diet: Usual Diet as Tolerated Activity: Apply Ice, As Tolerated, Elevate Extremity, Full Weight Bearing Activity, Other: Follow the total hip precautions. Driving: Do Not Drive Showering/Bathing: May Shower Wound/Incision Care: Keep Operative Site/Wound Site Clean and Dry, Do NOT Change Dressing Notify Provider of: Fever, Increased Pain, Swelling and Redness, Drainage, Nausea and/or Vomiting Other/Special Instructions: Please get up and moving around EVERY HOUR while awake. This helps to prevent blood clots. Please use your walker and have help with mobility as needed. Take a short walk in your home every hour while awake. Please take 325mg Aspirin TWICE daily. The aspirin is being used for blood clot prevention and not for pain management so please do not miss a dose of the medication. You could use a medication like Pepcid or Tagamet and a medication like Prilosec or Nexium to protect your stomach while you are using the aspirin. At home, please complete the exercises that you learned during the Hospital stay. Schedule for physical therapy. Follow the total hip precautions. Use the pain medication as needed. The medication may cause drowsiness and constipation. Contact your primary care provider for instructions if you are constipated. You may use a stool softener like docusate sodium or Colace 100mg twice daily and/or a laxative like Miralax daily for constipation. Increase your water and fiber intake while you are using the pain medication. Discontinue use of the pain medication as soon as able. Please do not use other medications that may cause drowsiness (other pain medications, anxiety pills, cold medications, sleeping pills, etc) while using the prescription pain medication. Do not use alcohol while using the pain medication. You may use acetaminophen or Tylenol for pain management, however, please ensure you are not using over 4000 mg or 4 grams of acetaminophen per day from all sources. Your pain medication has 325mg of acetaminophen per tablet. At this time, please do not use ibuprofen (Motrin, Advil) or naproxen (Aleve) for pain management as you are using the aspirin. When the aspirin course is completed in 5 weeks, you could use ibuprofen or naproxen for pain management (if this is allowed by your primary care provider) . Wear the MARY ANN hose during the day and you may remove these at night. Elevate the limb to decrease swelling. Place ice to the area often. Place a towel between your skin and the blue pad. Use the incentive spirometer often. Take deep breaths throughout the day. Please keep the dressing in place until follow -up. Notify the Clinic if the dressing becomes saturated. Increase your protein intake while you are healing. If you have diabetes, please closely monitor your blood sugars and notify your primary care provider with abnormal values. Elevated blood sugars increases the risk of infection. Call the Clinic with questions or concerns - [phone]. Follow-up with Dr. Harris early next week. Repeat CBC, CMP, Magnesium lab draw ordered on or around [address] Amato, PCP. Recommend outpatient sleep study after discharge. This can be arranged by Dr. Harris. Should symptoms return or worsen contact primary care provider, Dr. Spain's office, or return to the Emergency Department. - Discharge Plan *PRESCRIPTION DRUG MONITORING PROGRAM REVIEWED*: No *COPY OF PRESCRIPTION DRUG MONITORING REPORT IN PATIENT RICHARD: No Prescriptions/Med Rec: Aspirin [Ecotrin EC] 325 mg PO BID #70 tab.ec Cyclobenzaprine [Flexeril] 10 mg PO BID PRN #30 tablet PRN Reason: Spasms oxyCODONE 5 - 10 mg PO Q4H PRN #60 tablet PRN Reason: Pain Home Medications: Home Meds Multivitamin [Multivitamins] 1 tab PO DAILY 09/28/16 [History] Potassium Gluconate 500 mg PO DAILY 09/28/16 [History] Vitamin B Complex 1 tab PO DAILY 09/28/16 [History] Cholecalciferol (Vitamin D3) [Vitamin D3] 5,000 unit PO DAILY 12/13/19 [History] Lactobacillus Combination No.4 [Probiotic] 1 cap PO DAILY 12/13/19 [History] Ubidecarenone [Coq-10] 100 mg PO DAILY 12/13/19 [History] Iodine/Sodium Iodide [Iodine 2% Mild Tincture] 5 drop PO DAILY 12/14/19 [History ] Magnesium Oxide [Magnesium] 800 mg PO DAILY 12/14/19 [History] Aspirin [Ecotrin EC] 325 mg PO BID #70 tab.ec 12/17/19 [Rx] Cyclobenzaprine [Flexeril] 10 mg PO BID PRN #30 tablet 12/17/19 [Rx] Docusate Sodium [Colace] 100 mg PO BID cap 12/17/19 [Rx] Famotidine [Pepcid] 20 mg PO Q12H tablet 12/17/19 [Rx] Magnesium Hydroxide [Milk of Magnesia] 30 ml PO BID PRN cup 12/17/19 [Rx] Sennosides [Senna] 8.6 mg PO BID PRN tablet 12/17/19 [Rx] bisacodyL [Dulcolax] 5 mg PO DAILY PRN tablet 12/17/19 [Rx] oxyCODONE 5 - 10 mg PO Q4H PRN #60 tablet 12/17/19 [Rx] Oxygen Therapy Mode: Room Air Patient Handouts: Total Hip Replacement, [id number] Referrals: Francesca Abbott PA-C [Physician Oyster Sorter] - 12/29/19 4:00 pm Torito Harris MD [Primary Care Provider] - 12/21/19 4:00 pm - Discharge Summary/Plan Comment DC Time >30 min.: No - Patient Data Vitals - Most Recent: Last Vital Signs Temp 99.1 F 12/17/19 10:48 Pulse 69 12/14/19 15:00 Resp 16 12/17/19 10:48 BP 122/59 L 12/17/19 10:48 Pulse Ox 98 12/17/19 10:48 Weight - Most Recent: 136 lb Med Orders - Current: Current Medications Discontinued Medications Acetaminophen (Tylenol) 975 mg PO ONETIME LORI Stop: 12/14/19 12:00 Last Admin: 12/14/19 06:23 Dose: 975 mg Aspirin (Ecotrin) 325 mg PO BID [facility]I Aspirin (Ecotrin) 325 mg PO BID [facility]I Aspirin (Ecotrin) 325 mg PO BID [facility] Last Admin: 12/17/19 08:08 Dose: 325 mg Bisacodyl (Dulcolax) 5 mg PO DAILY PRN PRN Reason: Constipation Last Admin: 12/17/19 08:08 Dose: 5 mg Bupivacaine HCl (Sensorcaine-Mpf 0.25%) Confirm Administered Dose 30 ml .ROUTE .STK-MED ONE Stop: 12/14/19 06:16 Last Admin: 12/14/19 08:34 Dose: 30 ml Cefazolin Sodium (Ancef) Confirm Administered Dose 2 gm .ROUTE .STK-MED ONE Stop: 12/14/19 06:16 Last Admin: 12/14/19 08:31 Dose: 2 gm Cefazolin Sodium (Ancef) Confirm Administered Dose 2 gm .ROUTE .STK-MED ONE Stop: 12/14/19 06:59 Cholecalciferol (Vitamin D3) 5,000 unit PO DAILY [facility] Last Admin: 12/17/19 08:08 Dose: 5,000 unit Morphine Sulfate 8 mg/Epinephrine HCl 0.3 mg/Cefuroxime Sodium 750 mg/Ketorolac Tromethamine 30 mg/Sodium Chloride 27.9 ml 0 mg .XX ASDIRECTED PRN PRN Reason: Other Cyclobenzaprine HCl (Flexeril) 10 mg PO TID PRN PRN Reason: Spasms Last Admin: 12/17/19 11:03 Dose: 10 mg Diltiazem HCl (Cardizem) 10 mg IVPUSH ONETIME STA Stop: 12/14/19 11:58 Last Admin: 12/17/19 13:17 Dose: Not Given Diltiazem HCl (Cardizem) 15 mg IVPUSH ONETIME STA Stop: 12/14/19 12:22 Last Admin: 12/14/19 12:26 Dose: 15 mg Diltiazem HCl (Cardizem) 20 mg IVPUSH ONETIME ONE Stop: 12/14/19 13:09 Last Admin: 12/14/19 16:48 Dose: Not Given Diphenhydramine HCl (Benadryl) 25 mg IVPUSH Q6H PRN PRN Reason: itching Stop: 12/14/19 12:00 Docusate Sodium (Colace) 100 mg PO BID [facility] Last Admin: 12/17/19 08:08 Dose: 100 mg Enoxaparin Sodium (Lovenox) 60 mg SUBCUT BID [facility] Last Admin: 12/16/19 08:08 Dose: 60 mg Ephedrine Sulfate (Ephedrine In Ns) Confirm Administered Dose 50 mg .ROUTE .[facility]- MED ONE Stop: 12/14/19 07:42 Ephedrine Sulfate (Ephedrine Sulfate) 5 mg IVPUSH ASDIRECTED PRN PRN Reason: Hypotension Stop: 12/14/19 12:00 Famotidine (Pepcid) 20 mg PO Q12H [facility] Last Admin: 12/14/19 13:40 Dose: Not Given Famotidine (Pepcid) 20 mg PO Q12H [facility] Last Admin: 12/17/19 08:09 Dose: 20 mg Fentanyl (Sublimaze) Confirm Administered Dose 100 mcg .ROUTE .STK-MED ONE Stop: 12/14/19 06:59 Fentanyl (Sublimaze) 50 mcg IVPUSH Q5M PRN PRN Reason: pain Stop: 12/14/19 12:00 Hydromorphone HCl (Dilaudid) 0.5 mg IVPUSH Q15M PRN PRN Reason: Pain (severe 7-10) Stop: 12/14/19 12:00 Lactated Ringer's (Ringers, Lactated) 1,000 mls @ 125 mls/hr IV ASDIRECTED [facility] Last Admin: 12/14/19 06:41 Dose: 125 mls/hr Cefazolin Sodium/Dextrose 2 gm (/ Premix) 50 mls @ 100 mls/hr IV Q8H [facility] Stop: 12/14/19 23:14 Last Admin: 12/14/19 13:30 Dose: Not Given Lidocaine HCl (Xylocaine-Mpf 1%) Confirm Administered Dose 4 mls @ as directed .ROUTE .ST-MED ONE Stop: 12/14/19 06:51 Lactated Ringer's (Ringers, Lactated) Confirm Administered Dose 1,000 mls @ as directed .ROUTE .[facility]-MED ONE Stop: 12/14/19 06:59 Cefazolin Sodium/Dextrose 2 gm (/ Premix) 50 mls @ 100 mls/hr IV Q8H [facility] Stop: 12/15/19 07:29 Last Admin: 12/15/19 06:04 Dose: 100 mls/hr Lactated Ringer's (Ringers, Lactated) Confirm Administered Dose 1,000 mls @ as directed .ROUTE .[facility]-MED ONE Stop: 12/14/19 08:43 Diltiazem HCl 125 mg/ Sodium (Chloride) 125 mls @ 5 mls/hr IV TITRATE LORI; Protocol Diltiazem HCl 125 mg/ Sodium (Chloride) 125 mls @ 5 mls/hr IV TITRATE LORI; Protocol Lactated Ringer's (Ringers, Lactated) 1,000 mls @ 999 mls/min IV .BOLUS ONE Stop: 12/14/19 13:06 Last Admin: 12/14/19 13:30 Dose: Not Given Lactated Ringer's (Ringers, Lactated) 500 mls @ 999 mls/min IV .BOLUS ONE Stop: 12/14/19 13:08 Last Admin: 12/14/19 16:12 Dose: 999 mls/min Lactated Ringer's (Ringers, Lactated) 1,000 mls @ 100 mls/hr IV ASDIRECTED [facility] Last Admin: 12/15/19 22:52 Dose: 100 mls/hr Magnesium Sulfate 2 gm/ Premix 50 mls @ 25 mls/hr IV Q1H [facility] Stop: 12/14/19 18:29 Last Admin: 12/14/19 17:37 Dose: 25 mls/hr Magnesium Sulfate 4 gm/ Premix 100 mls @ 25 mls/hr IV ONETIME ONE Stop: 12/14/19 22:29 Last Admin: 12/14/19 19:37 Dose: 25 mls/hr Magnesium Sulfate 2 gm/ Premix 50 mls @ 25 mls/hr IV ONETIME ONE Stop: 12/16/19 11:29 Last Admin: 12/16/19 09:33 Dose: 25 mls/hr Iodine (Iodine 2% Mild Tincture) Confirm Administered Dose 30 ml .ROUTE .STK- MED ONE Stop: 12/14/19 06:16 Last Admin: 12/14/19 08:33 Dose: 18 ml Ketorolac Tromethamine (Toradol) 15 mg IVPUSH Q6H PRN PRN Reason: Pain Last Admin: 12/15/19 02:18 Dose: 15 mg Ketorolac Tromethamine (Toradol) 15 mg IVPUSH ONETIME ONE Stop: 12/15/19 11:31 Last Admin: 12/15/19 11:39 Dose: 15 mg Lidocaine/Sodium Bicarbonate (Buffered Lidocaine 1% In Ns 8.4%) 0.25 ml IDERM ONETIME PRN PRN Reason: Prior to IV Start Last Admin: 12/14/19 06:41 Dose: 0.25 ml Magnesium Hydroxide (Milk Of Magnesia) 30 ml PO BID PRN PRN Reason: Constipation Magnesium Oxide (Magnesium Oxide) 800 mg PO DAILY [facility] Last Admin: 12/17/19 08:08 Dose: 800 mg Magnesium Oxide (Magnesium Oxide) 800 mg PO ONETIME ONE Stop: 12/16/19 10:16 Last Admin: 12/16/19 10:20 Dose: 800 mg Midazolam HCl (Versed 1 Mg/Ml) Confirm Administered Dose 2 mg .ROUTE .STK-MED ONE Stop: 12/14/19 06:59 Morphine Sulfate (Morphine) 2 mg IVPUSH Q2H PRN PRN Reason: Breakthrough Pain Last Admin: 12/16/19 00:01 Dose: 2 mg Multivitamins (Thera) 1 each PO DAILY [facility] Last Admin: 12/17/19 08:08 Dose: 1 each Naloxone HCl (Narcan) 0.1 mg IVPUSH Q5M PRN PRN Reason: Oversedation Non-Formulary Medication (Potassium Gluconate [Potassium Gluconate]) 500 mg PO DAILY [facility] Non-Formulary Medication (Ubidecarenone) 100 mg PO DAILY [facility] Non-Formulary Medication (Vitamin A) 10,000 units PO DAILY [facility] Ondansetron HCl (Zofran) 4 mg IVPUSH Q6H PRN PRN Reason: Nausea/Vomiting Last Admin: 12/15/19 10:14 Dose: 4 mg Ondansetron HCl (Zofran) Confirm Administered Dose 4 mg .ROUTE .STK-MED ONE Stop: 12/14/19 07:36 Ondansetron HCl (Zofran) 4 mg IVPUSH ONETIME PRN PRN Reason: Nausea/Vomiting Stop: 12/14/19 12:00 Oxycodone HCl (Oxycontin) 10 mg PO ONETIME [facility] Stop: 12/14/19 12:00 Last Admin: 12/14/19 06:23 Dose: 10 mg Oxycodone HCl (Oxycodone) 5 - 10 mg PO Q4H PRN PRN Reason: Pain Last Admin: 12/17/19 08:09 Dose: 10 mg Oxycodone HCl (Oxycodone) 5 mg PO ONETIME ONE Stop: 12/15/19 11:31 Last Admin: 12/15/19 11:43 Dose: 5 mg Phenylephrine HCl (Phenylephrine In Ns 100 Mcg/Ml) Confirm Administered Dose 1 mg .ROUTE .STK-MED ONE Stop: 12/14/19 07:47 Pregabalin (Lyrica) 50 mg PO ONETIME [facility] Stop: 12/14/19 12:00 Last Admin: 12/14/19 06:23 Dose: 50 mg Propofol (Diprivan 20 Ml) Confirm Administered Dose 600 mg .ROUTE .STK-MED ONE Stop: 12/14/19 06:51 Saccharomyces Boulardii (Florastor) 250 mg PO DAILY [facility] Last Admin: 12/17/19 08:09 Dose: 250 mg Senna (Senna) 8.6 mg PO BID PRN PRN Reason: Constipation Last Admin: 12/16/19 08:07 Dose: 8.6 mg Sodium Chloride (Saline Flush) 10 ml FLUSH ASDIRECTED PRN PRN Reason: Keep Vein Open Tranexamic Acid (Cyklokapron) Confirm Administered Dose 1,000 mg .ROUTE .STK- MED ONE Stop: 12/14/19 06:16 Last Admin: 12/14/19 08:38 Dose: 1,000 mg Vancomycin HCl (Vancomycin) Confirm Administered Dose 1 gm .ROUTE .STK-MED ONE Stop: 12/14/19 06:16 Last Admin: 12/14/19 08:38 Dose: 1 gm Vitamin B Complex/Vitamin C (Super B With Vitamin C) 1 cap PO DAILY [facility] Last Admin: 12/17/19 08:08 Dose: 1 cap Warfarin Sodium (Pharmacy To Dose - Warfarin) 1 dose .XX ASDIRECTED PRN PRN Reason: RX TO DOSE WARFARIN Warfarin Sodium (Coumadin) 5 mg PO QPM [facility] Stop: 12/15/19 18:01 Last Admin: 12/15/19 17:13 Dose: 5 mg Warfarin Sodium (Coumadin) 5 mg PO QPM [facility] Stop: 12/16/19 18:01
== END 2019-12-17 13:00 | disposition home or self-care (01) | DRG 468 ==
LOC: JD.MS 06:09 → JD.ICU 11:59
PROVIDERS: ADMIT Internal Medicine; ATTEND Internal Medicine
PROC: 0SRB01Z Replacement of Left Hip Joint with Metal Synthetic Substitute, Open Approach (ICD-10-PCS; principal; 2019-12-14)
PROC: 0SPB0JZ Removal of Synthetic Substitute from Left Hip Joint, Open Approach (ICD-10-PCS; 2019-12-14)
PROC: 02HV33Z Insertion of Infusion Device into Superior Vena Cava, Percutaneous Approach (ICD-10-PCS; 2019-12-14)
DX: T84.84XA Pain due to internal orthopedic prosthetic devices, implants and grafts, initial encounter (principal); M16.12 Unilateral primary osteoarthritis, left hip; E03.9 Hypothyroidism, unspecified; F41.9 Anxiety disorder, unspecified; I48.91 Unspecified atrial fibrillation; G47.30 Sleep apnea, unspecified; H54.7 Unspecified visual loss; K40.90 Unilateral inguinal hernia, without obstruction or gangrene, not specified as recurrent; D36.9 Benign neoplasm, unspecified site; M81.0 Age-related osteoporosis without current pathological fracture; M19.90 Unspecified osteoarthritis, unspecified site; G43.909 Migraine, unspecified, not intractable, without status migrainosus; Z96.642 Presence of left artificial hip joint; L82.1 Other seborrheic keratosis; E83.52 Hypercalcemia; N81.4 Uterovaginal prolapse, unspecified; F32.89 Other specified depressive episodes; E04.1 Nontoxic single thyroid nodule; Z86.010 Personal history of colon polyps; Z79.890 Hormone replacement therapy; Z79.899 Other long term (current) drug therapy; Z87.891 Personal history of nicotine dependence; Z98.51 Tubal ligation status; Z90.710 Acquired absence of both cervix and uterus; Z98.890 Other specified postprocedural states; Z87.442 Personal history of urinary calculi
CPT/HCPCS: 01215; 36415; 73501-26-LT; 73501-LT; 80053; 83735; 84100; 85014; 85018; 85025; 85027; 85610; 86850; 86900; 86901; 87641; 93005; 93306; 97110-GP; 97116-GP; 97161-GP; 97165-GO; 97535-GO; A9270-GY; C1776; J0690; J1650; J1885; J2001; J2250; J2270; J2370; J2405; J2704; J3010; J3370; J3475; J3490; J7050; J7120

== ENCOUNTER 2024-02-06 19:57 | Emergency (ER) | payer MEDICARE, OTHER ==
[2024-02-06 20:10] VITALS: PULSE 64
[2024-02-06] MEDS: Sodium Chloride 0.9% 1,000 ML IV STA (20:36)
[2024-02-06 20:37] LABS: BASOPHILS PERCENT AUTO 0.4 % (0.0-1.0); EOSINOPHILS ABSOLUTE AUTO 0.1 K/mm3 (0.0-0.4); EOSINOPHILS PERCENT AUTO 1.2 % (0.0-6.0); HEMOGLOBIN 11.6 gm/dl (12.0-16.0); IMMATURE GRAN ABSOLUTE AUTO 0.02 K/mm3 (0.00-0.05); IMMATURE GRAN PERCENT AUTO 0.2 % (0.0-0.4); LYMPHOCYTES ABSOLUTE AUTO 1.8 K/mm3 (1.0-4.8); LYMPHOCYTES PERCENT AUTO 22.2 % (24.0-44.0); MEAN CORPUSCULAR HGB CONC 34.1 g/dl (32.0-36.0); MEAN CORPUSCULAR VOLUME 93.9 fl (83.0-99.0); MONOCYTES ABSOLUTE AUTO 0.5 K/mm3 (0.0-0.8); MONOCYTES PERCENT AUTO 6.6 % (0.0-8.0); NEUTROPHILS ABSOLUTE AUTO 5.6 K/mm3 (1.8-7.7); NEUTROPHILS PERCENT AUTO 69.4 % (41.0-71.0); PLATELET COUNT,PLT 276 K/mm3 (150-400); RED BLOOD CELL COUNT 3.62 M/mm3 (4.10-5.30); WHITE BLOOD CELL COUNT,WBC 8.01 K/mm3 (3.9-11.3)
[2024-02-06] MEDS: Ondansetron 4 MG/2 ML SDV IVPUSH ONE (20:37)
[2024-02-06] MEDS: Sodium Chloride 0.9% 10 ML Syringe FLUSH PRN (20:38)
[2024-02-06 20:59] LABS: A/G RATIO 1.1 (1-2); ALBUMIN 3.5 g/dl (3.4-5.0); ANION GAP 13.8 (5-15); BILIRUBIN TOTAL 0.6 mg/dL (0.2-1.0); BUN/CREATININE RATIO 17.5 (14-18); C-REACTIVE PROTEIN 4.48 mg/dL (<0.30); CREATININE 0.8 mg/dL (0.55-1.02); EST CRCL DRUG DOSING (CG) 47.97 mL/min; MAGNESIUM 1.7 mg/dL (1.8-2.4); POTASSIUM,K 3.8 mEq/L (3.5-5.1); PROTEIN TOTAL,TP 6.8 g/dl (6.4-8.2)
[2024-02-06 21:34] LABS: APPEARANCE,URINE CLEAR (Clear); BILIRUBIN,URINE NEGATIVE (Negative); COLOR,URINE YELLOW (Yellow); GLUCOSE,URINE NEGATIVE (Negative); KETONES,URINE 1+ (Negative); LEUKOCYTE ESTERASE,URINE TRACE (Negative); NITRITE,URINE NEGATIVE (Negative); OCCULT BLOOD,URINE 1+ (Negative); PROTEIN,URINE NEGATIVE (Negative); UROBILINOGEN,URINE 0.2 (0.2-1.0)
[2024-02-06 21:48] LABS: CORONAVIRUS COVID-19 NAA NEGATIVE (NEGATIVE); INFLUENZA A NAA NEGATIVE (NEGATIVE); RESPIRATORY SYNCYTIAL VIR NAA NEGATIVE (NEGATIVE)
[2024-02-06 21:54] LABS: BACTERIA,URINE FEW /hpf (FEW); MUCUS,URINE FEW /hpf (FEW); SQUAMOUS EPITHELIAL CELLS,UR 0-5 /hpf (0-5); WBC,URINE 0-5 /hpf (0-5)
[2024-02-06] MEDS: Amoxicillin/Clavulanate K 875-125 MG Tab PO ONE (22:10)
[2024-02-06 22:20] VITALS: BP 130/58
== END 2024-02-06 22:15 | disposition home or self-care (01) ==
LOC: JD.ED 19:57
DX: J44.9 Chronic obstructive pulmonary disease, unspecified (principal); R11.0 Nausea; Z87.891 Personal history of nicotine dependence; Z79.899 Other long term (current) drug therapy
CPT/HCPCS: 0241U; 36415; 80053; 81001; 83735; 85025; 86140; 96374; 99283; A9270; J2405; J3490; J7030; 99284

== ENCOUNTER 2025-06-15 07:27 | Emergency (ER) | payer MEDICARE, OTHER ==
[2025-06-15 09:38] VITALS: BP 121/78; PULSE 68
== END 2025-06-15 09:38 | disposition home or self-care (01) ==
LOC: JD.ED 07:27
DX: M19.032 Primary osteoarthritis, left wrist (principal); I48.91 Unspecified atrial fibrillation; Z79.899 Other long term (current) drug therapy
CPT/HCPCS: 73100-26-LT; 73100-LT; 99283